=== PATIENT | female | born 1935 ===

== ENCOUNTER 2017-07-06 23:18 | Observation (INO) | payer MEDICARE ==
[2017-07-06 23:19] VITALS: BMI 29.0
[2017-07-06] MEDS ORDERED: Iohexol 300 100 ML IJ ONE (23:59)
--- NOTE | 2017-07-07 00:03 | ED PDOC ---
Arrival/HPI - General Chief Complaint: Weakness/Neurological Deficit Time Seen by Provider: 07/06/17 23:47 Historian: Patient, Family (daughter) - History of Present Illness Narrative History of Present Illness (Text): 07/06/17 23:47 81 y/o F c no PMHx p/w numbness of the left forearm and hand that began an hour prior to arrival. Patient reports she was sewing when she began to feel the numbness and called her daughter and grandson. Last time well 1 hour ago. Patient states that the numbness is still present on the left arm. She denies weakness or slurred speech. Patient was recently in the emergency department on 07/01/17 for left leg pain and to rule out DVT which came back negative. Patient denies any fever, facial droop, pain, vision change, or any other complaints. PMD: Dr. Ricks Time/Duration: 1 hour Symptom Onset: Sudden Symptom Course: Unchanged Activities at Onset: Light Context: Home Past Medical History - Provider Review Nursing Documentation Reviewed: Yes - Infectious Disease Hx of Infectious Diseases: None - Cardiac Hx Cardiac Disorders: Yes Hx Hypotension: Yes - Pulmonary Hx Respiratory Disorders: Yes Hx Pneumonia: Yes Other/Comment: flu- 2015 - Neurological Hx Neurological Disorder: Yes Hx Vertigo: Yes - HEENT Hx HEENT Disorder: No - Renal Hx Renal Disorder: No - Endocrine/Metabolic Hx Endocrine Disorders: No - Hematological/Oncological Hx Blood Disorders: No - Integumentary Hx Dermatological Disorder: No - Musculoskeletal/Rheumatological Hx Musculoskeletal Disorders: No - Gastrointestinal Hx Gastrointestinal Disorders: No - Genitourinary/Gynecological Hx Genitourinary Disorders: No - Psychiatric Hx Psychophysiologic Disorder: No Hx Substance Use: No - Past Surgical History Past Surgical History: No Previous - Anesthesia Hx Anesthesia: No - Suicidal Assessment Feels Threatened In Home Enviroment: No Family/Social History - Physician Review Nursing Documentation Reviewed: Yes Family/Social History: No Known Family HX Smoking Status: Never Smoked Hx Alcohol Use: No Hx Substance Use: No Hx Substance Use Treatment: No Allergies/Home Meds Allergies/Adverse Reactions: Allergies Penicillins Allergy (Verified 07/06/17 23:25) RASH Home Medications: Home Meds Medication Instructions Recorded Confirmed Multivit-Minerals/Folic Acid 1 tab PO DAILY 07/01/17 07/06/17 [Adult Multi Gummies] Review of Systems - Physician Review All systems were reviewed & negative as marked: Yes - Review of Systems Constitutional: absent: Fevers Eyes: absent: Vision Changes Neurological: Other (Numbeness on the left forearm and hand). absent: Facial Droop Physical Exam - Physical Exam Narrative Physical Exam (Text): Constitutional: No acute distress. Head: Normocephalic. Atraumatic. Eyes: PERRL. ENT: Moist mucous membranes. Neck: Supple. No midline tenderness. Cardiovascular: Regular rate. Chest: No tenderness. Respiratory: Clear to auscultation bilaterally. GI: Soft. Nontender. Nondistended. Back: No CVA tenderness. Musculoskeletal: No tenderness or swelling of extremities. Skin: No rash. Neurologic: Alert. Left hand and arm numbness compared to the right in a all dermatomes, subjectively decreased sensation to light touch and pin prick. Also in left leg compared to the right. 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 No facial droop. Vital Signs Reviewed: Yes Vital Signs Temp Pulse Resp BP Pulse Ox 07/07/17 02:14 69 18 108/63 96 07/07/17 01:50 71 18 115/61 98 07/07/17 00:55 67 18 125/68 98 07/07/17 00:40 67 18 97/62 L 98 07/07/17 00:25 69 16 106/59 L 96 07/06/17 23:25 98.1 F 75 18 136/72 97 Temperature: Afebrile Blood Pressure: Normal Pulse: Regular Respiratory Rate: Normal Appearance: Positive for: Well-Appearing, Non-Toxic, Comfortable Pain Distress: None Mental Status: Positive for: Alert and Oriented X 3 Medical Decision Making ED Course and Treatment: 07/06/17 23:47 Plan: -- Labs -- CT Angiography Head -- CT Angiography Neck -- CT Head -- EKG -- Chest X-ray -- Tylenol -- Reassess and disposition Progress Notes: 07/06/17 23:47 Activated Code Stroke. EKG shows NSR at [address]/T wave changes. Interpreted by me. EXAM:CT Head Without Intravenous Contrast Dictated and Authenticated by: Nilson Bejarano MD 07/07/2017 12:05 AM IMPRESSION: 1. No acute intracranial hemorrhage or acute territorial type infarct. 2. There are small periventricular foci of hypodensity within the cerebral white matter, likely representing small vessel ischemic disease in a patient this age. 3. Mild atrophy. 4. Paranasal sinus disease is noted above. EXAM:CT Angiography Neck With Intravenous Contrast Dictated and Authenticated by: Nilson Bejarano MD 07/07/2017 12:41 AM IMPRESSION: 1. Mural irregularity and mild stenoses are identified of the distal right internal carotid artery, consistent with stenoses. This may be atherosclerotic, although fibromuscular dysplasia is within the differential. 2. There is mural irregularity also visualized of the distal left internal carotid artery, without hemodynamically significant stenosis. 3. Scattered hypodense thyroid nodules are identified, which are subcentimeter in size. 4. Within the right pulmonary apex, there is a 4 mm nodule. A nonemergent chest CT is recommended. 5. Incidental/non-acute findings are described above. CXR Impression: As read by me, No acute disease. EXAM: CT Angiography Head With Intravenous Contrast Dictated and Authenticated by: Nilson Bejarano MD 07/07/2017 1:18 AM IMPRESSION: 1. 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 2. 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 There is approximately 50% stenosis on the left side and less than 50% stenosis on the right side. 3. There is persistence of a origin of the right posterior cerebral artery , with a hypoplastic right P1 segment. 4. Anterior to the left posterior cerebral artery, an enhancing vessel is identified. This is suggestive of a collateral vessel. An AV fistula cannot be excluded. This can be further evaluated with conventional angiography. 5. Incidental/non-acute findings are described above. 07/07/17 01:[address] Rios who recommends against tPA at this time in this patient with low NIH, low severity symptoms. Will consult. 07/07/17 01:[address] Ricks, recommends ICU consult. 07/07/17 01:46 Discussed case with Hydrometer Calibrator Dr. Ware, will come down and evaluate patient. 07/07/17 02:[address] Ware seen and evaluated patient and recommends patient admission to Telemetry. Called Dr. Ricks who is aware and agrees with the plan. Will place order for neuro checks Q2H. Patient will be admitted to Telemetry. Dr. Ricks requests recall to Dr. Rios to inform of what has transpired and to obtain orders. Dr. Rios paged, pending his call back. - Lab Interpretations Lab Results: 07/07/17 00:20 07/07/17 00:20 Lab Results 07/07/17 00:34: POC Glucose (mg/dL) 76 07/07/17 00:20: Blood Type O NEGATIVE, Antibody Screen Negative, BBK History Checked No verified bt 07/07/17 00:20: Sodium 137, Potassium 3.9, Chloride 105, Carbon Dioxide 28, Anion Gap 8 L, BUN 37 H, Creatinine 0.7, Est GFR ( Amer) > 60, Est GFR ( Non-Af Amer) > 60, Random Glucose 89, Calcium 10.5, Total Bilirubin 0.3, AST 16 , ALT 39, Alkaline Phosphatase 75, Troponin I < 0.01, Total Protein 5.8, Albumin 3.4, Globulin 2.4, Albumin/Globulin Ratio 1.4, Triglycerides 104, Cholesterol 207 H, LDL Cholesterol Direct 132 H, HDL Cholesterol 45 07/07/17 00:20: PT 11.7, INR 1.07, APTT 32.4 07/07/17 00:20: WBC 7.4 D, RBC 3.91, Hgb 11.6 L, Hct 34.9 L, MCV 89.3, MCH 29.7 , MCHC 33.2, RDW 13.8, Plt Count 232, MPV 10.3, Gran % 60.0, Lymph % (Auto) 26.4 , [place] % (Auto) 10.3 H, Eos % (Auto) 2.9, Baso % (Auto) 0.4, Gran # 4.42, Lymph # 1.9, [place] # 0.8 H, Eos # 0.2, Baso # 0.03 I have reviewed the lab results: Yes - RAD Interpretation Radiology Orders: 07/06/17 23:50 HEAD W/O (CODE STROKE) [CT] Stat 07/06/17 23:55 ANGIOGRAPHY HEAD [CT] Stat 07/06/17 23:57 ANGIOGRAPHY NECK [CT] Stat 07/07/17 00:18 CHEST PORTABLE [RAD] Stat - EKG Interpretation Interpreted by ED Physician: Yes Type: 12 lead EKG - Medication Orders Current Medication Orders: Aspirin (Aspirin Chewable) 81 mg PO DAILY GANESH Discontinued Medications Aspirin (Aspirin) 325 mg PO STAT STA Stop: 07/07/17 02:21 Last Admin: 07/07/17 03:36 Dose: 325 mg Atorvastatin Calcium (Lipitor) 20 mg PO STAT STA Stop: 07/07/17 03:25 Last Admin: 07/07/17 03:36 Dose: 20 mg rTPA Inclusion/Exclusion - Refusal of Treatment Patient Refused Treatment: No - Inclusion Criteria for Altepase Patient is 18 years or Older: Yes The Clinical Diagnosis of Ischemic Stroke That is Causing a Potentially Disabling Neurological Deficit: Yes Time of Onset is Well Established to be Less Than 270 Minute Before Treatment Would Begin: Yes Risk/Benefit Discussed With Patient/Family Member Present: Yes - Exclusion Criteria for Altepase Uncontrolled Hypertension at Time of Treatment (Systolic BP above 185 or Diastolic BP above 110 mmHg): No History of: Vascular Malformation (questionable on CT) - Warning to TPA With Conditions Following Conditions Weighed Against Anticipated Benefit: Yes Condition: Stroke Serevity Too Mild, Age Greater Than 75 years - Scribe Statement The provider has reviewed the documentation as recorded by the Travis Carballo Provider Scribe Attestation: All medical record entries made by the Travis were at my direction and personally dictated by me. I have reviewed the chart and agree that the record accurately reflects my personal performance of the history, physical exam, medical decision making, and the department course for this patient. I have also personally directed, reviewed, and agree with the discharge instructions and disposition. Disposition/Present on Arrival - Present on Arrival Any Indicators Present on Arrival: No History of DVT/PE: No History of Uncontrolled Diabetes: No Urinary Catheter: No History of Decub. Ulcer: No History Surgical Site Infection Following: None - Disposition Have Diagnosis and Disposition been Completed?: Yes Diagnosis: Hemiparesthesia, Left arm weakness Disposition: HOSPITALIZED Disposition Time: 02:15 Patient Plan: Admission, Telemetry Patient Problems: Current Active Problems Problem Status Onset Hemiparesthesia Acute Left arm weakness Acute Condition: GUARDED NIHSS Stroke Scale - Date/Time Evaluation Performed Date Performed: 07/06/17 Time Performed: 23:47 - How Severe is the Stoke Level of Consciousness: 0=Alert Visual: 0=No visual loss Facial: 0=Normal Motor Arm - Left: 0=No drift Motor Arm - Right: 0=No drift Motor Leg - Left: 0=No drift Motor Leg - Right: 0=No drift Limb Ataxia: 0=Absent Sensory: 1=Mild to moderate loss Best Language: 0=No aphasia Dysarthia: 0=Normal articulation Extinction & Inattention (Neglect): 0=Normal, no object Severity Of Stroke: 1-4= Minor Stroke
--- NOTE | 2017-07-07 00:05 | CT ---
EXAM: CT Head Without Intravenous Contrast EXAM DATE/TIME: 07/06/2017 11:50 PM CLINICAL HISTORY: The patient age is 81 years old and is female; Signs and symptoms; Weakness, extremity; Left; Additional info: L sided weakness, numbness Facility exam id and description: Ct headstroke head w/o (code stroke) TECHNIQUE: Axial computed tomography images of the head/brain without intravenous contrast. All CT scans at this facility use one or more dose reduction techniques, viz.: automated exposure control; ma/kV adjustment per patient size (including targeted exams where dose is matched to indication; i.e. head); or iterative reconstruction technique. COMPARISON: CT - HEAD W/O CONTRAST 2017-02-02 11:27 FINDINGS: Brain: There are small periventricular foci of hypodensity within the cerebral white matter, likely representing small vessel ischemic disease in a patient this age. The acuity of the white matter disease is indeterminate. The white-barreto differentiation is preserved demonstrating no acute territorial type infarct. There is mild prominence of the ventricles and sulci, compatible with atrophy. No acute intracranial hemorrhage is seen. Midline shift: There is no midline shift. Ventricles: See above. Bones/joints: The calvarium demonstrates no evidence for a depressed fracture. Soft tissues: No acute abnormality. Vasculature: There is atherosclerotic calcification of the cavernous internal carotid arteries and distal vertebral arteries. Sinuses: A mucus retention cyst or polyp with mucosal thickening are visualized in the left maxillary sinus. Mastoid air cells: No mastoid effusion. IMPRESSION: 1. No acute intracranial hemorrhage or acute territorial type infarct. 2. There are small periventricular foci of hypodensity within the cerebral white matter, likely representing small vessel ischemic disease in a patient this age. 3. Mild atrophy. 4. Paranasal sinus disease is noted above.
--- NOTE | 2017-07-07 00:41 | CT ---
EXAM: CT Angiography Neck With Intravenous Contrast EXAM DATE/TIME: 07/06/2017 11:57 PM CLINICAL HISTORY: The patient age is 81 years old and is female; Signs and symptoms; Weakness; Additional info: Code stroke Facility exam id and description: Ct angionk angiography neck TECHNIQUE: Axial computed tomographic angiography images of the neck with intravenous contrast using CT angiography protocol. All CT scans at this facility use one or more dose reduction techniques, viz.: automated exposure control; ma/kV adjustment per patient size (including targeted exams where dose is matched to indication; i.e. head); or iterative reconstruction technique. MIP reconstructed images were created and reviewed. Coronal and sagittal reformatted images were created and reviewed. CTA neck images were included with the CTA head study from the same day. CONTRAST: 100 mL of omni 300 administered intravenously. COMPARISON: No relevant prior studies available. FINDINGS: VASCULATURE: Right common carotid artery: There is increased tortuosity of the right common carotid artery, without significant stenosis or occlusion. Right internal carotid artery: Mural irregularity and mild stenoses are identified of the distal right internal carotid artery, consistent with stenoses. This may be atherosclerotic, although fibromuscular dysplasia is within the differential. There is no significant stenosis or occlusion of the proximal right internal carotid artery. Right external carotid artery: No occlusion. Right vertebral artery: No occlusion or significant stenosis. Left common carotid artery: No significant stenosis. No dissection or occlusion. Left internal carotid artery: There is mural irregularity of the distal left internal carotid artery, without hemodynamically significant stenosis. No occlusion. Left external carotid artery: No occlusion. Left vertebral artery: No occlusion or significant stenosis. Other vasculature: There is atherosclerosis of the aortic arch. NECK: Bones/joints: There is straightening of the lordotic curvature of the cervical spine. Spondylosis is visualized on multiple cervical levels. Lymph nodes: Scattered small nonspecific cervical lymph nodes are identified. Thyroid: Scattered hypodense thyroid nodules are identified, which are subcentimeter in size. Lung apices: Within the right pulmonary apex, there is a 4 mm nodule. Patchy nonspecific groundglass density is identified within the lungs bilaterally. CAROTID STENOSIS REFERENCE USING NASCET CRITERIA: % ICA stenosis = (1 - narrowest ICA diameter/diameter of distal cervical ICA) x 100. Mild - <50% stenosis. Moderate - 50-69% stenosis. Severe - 70-94% stenosis. Near occlusion - 95-99% stenosis. Occluded - 100% stenosis. IMPRESSION: 1. Mural irregularity and mild stenoses are identified of the distal right internal carotid artery, consistent with stenoses. This may be atherosclerotic, although fibromuscular dysplasia is within the differential. 2. There is mural irregularity also visualized of the distal left internal carotid artery, without hemodynamically significant stenosis. 3. Scattered hypodense thyroid nodules are identified, which are subcentimeter in size. 4. Within the right pulmonary apex, there is a 4 mm nodule. A nonemergent chest CT is recommended. 5. Incidental/non-acute findings are described above.
[2017-07-07 00:45] LABS: BASO # 0.03 K/mm3 (0.0-2.0); BASO % 0.4 % (0.0-3.0); EOS # 0.2 (0.0-0.7); EOS % 2.9 % (1.5-5.0); GRAN # 4.42 (1.4-6.5); HEMATOCRIT 34.9 % (36.0-48.0); LYMPH # 1.9 (1.2-3.4); LYMPH % 26.4 % (22.0-35.0); MEAN CELL VOLUME 89.3 fl (80.0-105.0); MEAN CORPUSCULAR HEMOGLOBIN 29.7 pg (25.0-35.0); MEAN CORPUSCULAR HGB CONC 33.2 g/dl (31.0-37.0); MEAN PLATELET VOLUME 10.3 fl (7.0-11.0); MONO # 0.8 (0.1-0.6); MONO % 10.3 % (1.0-6.0); RED CELL DISTRIBUTION WIDTH 13.8 % (11.5-14.5); WHITE BLOOD COUNT 7.4 10^3/ul (4.5-11.0)
[2017-07-07 00:50] LABS: INR 1.07 (0.93-1.08); PARTIAL THROMBOPLASTIN TIME 32.4 Seconds (25.1-36.5)
[2017-07-07 00:57] LABS: ALB/GLOB RATIO 1.4 (1.1-1.8); ALKALINE PHOSPHATASE 75 U/L (38-126); ALT/SGPT 39 U/L (7-56); AST/SGOT 16 U/L (14-36); BILIRUBIN,TOTAL 0.3 mg/dL (0.2-1.3); BLOOD UREA NITROGEN 37 mg/dL (7-21); CALCIUM 10.5 mg/dL (8.4-10.5); CARBON DIOXIDE 28 mmol/L (21-33); CHLORIDE 105 mmol/L (95-110); CHOLESTEROL 207 mg/dL (130-200); GFR AFRICAN-AMERICAN > 60; GLUCOSE,RANDOM 89 mg/dL (70-110); POTASSIUM 3.9 mmol/L (3.6-5.0); SODIUM 137 mmol/L (132-148); TOTAL PROTEIN 5.8 g/dL (5.8-8.3)
[2017-07-07 01:08] LABS: TROPONIN I < 0.01 ng/mL
--- NOTE | 2017-07-07 01:18 | CT ---
EXAM: CT Angiography Head With Intravenous Contrast EXAM DATE/TIME: 07/06/2017 11:55 PM CLINICAL HISTORY: The patient age is 81 years old and is female; Signs and symptoms; Weakness; Additional info: Code stroke Facility exam id and description: Ct angiohd angiography head TECHNIQUE: Axial computed tomographic angiography images of the head with intravenous contrast using CT angiography protocol. All CT scans at this facility use one or more dose reduction techniques, viz.: automated exposure control; ma/kV adjustment per patient size (including targeted exams where dose is matched to indication; i.e. head); or iterative reconstruction technique. MIP reconstructed images were created and reviewed. Coronal and sagittal reformatted images were created and reviewed. CONTRAST: 100 mL of OMNI 300 administered intravenously. 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 There is approximately 50% stenosis on the left side and less than 50% stenosis on the right side. Right anterior cerebral artery: No occlusion or significant stenosis. No aneurysm. Right middle cerebral artery: No occlusion or significant stenosis. No aneurysm. Right posterior cerebral artery: There is persistence of a origin of the right posterior cerebral artery, with a hypoplastic right P1 segment. No occlusion. No aneurysm. Right vertebral artery: No occlusion or significant stenosis. Left internal carotid artery: See above. Left anterior cerebral artery: No occlusion or significant stenosis. No aneurysm. Left middle cerebral artery: No occlusion or significant stenosis. No aneurysm. Left posterior cerebral artery: No occlusion or significant stenosis. Anterior to the left posterior cerebral artery, an enhancing vessel is identified. This is suggestive of a collateral vessel. An AV fistula cannot be excluded. Left vertebral artery: No occlusion or significant stenosis. Basilar artery: No significant stenosis. No occlusion. No aneurysm. Other findings: There is increased tortuosity of the vertebrobasilar system. IMPRESSION: 1. 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 2. 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 There is approximately 50% stenosis on the left side and less than 50% stenosis on the right side. 3. There is persistence of a origin of the right posterior cerebral artery, with a hypoplastic right P1 segment. 4. Anterior to the left posterior cerebral artery, an enhancing vessel is identified. This is suggestive of a collateral vessel. An AV fistula cannot be excluded. This can be further evaluated with conventional angiography. 5. Incidental/non-acute findings are described above.
--- NOTE | 2017-07-07 02:19 | CP.PCM.CON ---
<Kayley Garcia - Last Filed: 07/07/17 03:04> History of Present Illness - History of Present Illness History of Present Illness: 81yo female denies PMHx on no medications presents to ED with numbness and tingling of left hand and forearm that started at 10:30pm [an hour prior to arriving in ED]. Patient was sewing at the time of event and noticed her hands become numb which started to move upwards. Patient's family at bedside denied noticing any facial droop, changes in vision, changes in speech, or changes in mentation. Patient was recently in the emergency department on 07/01/17 for left leg pain and to rule out DVT which came back negative. She did complain of some dizziness and when family took her BP at home it was 131/83 which is elevated for the patient who has SBP 80s-90s at baseline. On ROS patient denied fever, chills, headache, chest pain, palpitations, SOB, cough, abd pain, nausea , vomiting, bowel/bladder complaints, pain/swelling in her legs bilaterally. She usually ambulates around the house and carries out ADLs. Patient recently traveled to [facility] 2 weeks ago and patient denied any sick contacts. Patient last saw PMD Dr. Ricks in ER on 07/01 PMD: Rambo PMH: denies PSH: denies Meds: multivitamin Allergies: PCN Social Hx: denies tobacco, EtOH, drug use. Lives at home with nephew. 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 Family Hx: father had stomach ca. Review of Systems - Constitutional Constitutional: As Per HPI. absent: Chills, Fever - EENT Eyes: As Per HPI. absent: Change in Vision Ears: As Per HPI, Dizziness Nose/Mouth/Throat: As Per HPI. absent: Sore Throat - Cardiovascular Cardiovascular: As Per HPI. absent: Chest Pain, Dyspnea, Edema - Respiratory Respiratory: As Per HPI. absent: Cough, Dyspnea, Chest Congestion - Gastrointestinal Gastrointestinal: As Per HPI. absent: Abdominal Pain, Constipation, Diarrhea, Nausea, Vomiting - Genitourinary Genitourinary: As Per HPI. absent: Dysuria, Pyuria - Musculoskeletal Musculoskeletal: As Per HPI, Numbness (L hand and forearm), Tingling (L hand and forearm) - Integumentary Integumentary: As Per HPI. absent: Dry Skin - Neurological Neurological: As Per HPI, Dizziness, Numbness (L forearm), Focal Weakness (L forearm), Tingling (L forearm), Weakness (L forearm). absent: Abnormal Gait, Abnormal Hearing, Abnormal Speech, Confusion, Frequent Falls, Headaches, Loss of Vision, Syncope - Psychiatric Psychiatric: As Per HPI. absent: Anxiety, Depression - Endocrine Endocrine: As Per HPI. absent: Polydipsia, Polyphagia, Polyuria - Hematologic/Lymphatic Hematologic: As Per HPI. absent: Easy Bleeding, Easy Bruising, Lymphadenopathy Past Patient History - Infectious Disease Hx of Infectious Diseases: None - Past Social History Smoking Status: Never Smoked - CARDIAC Hx Cardiac Disorders: Yes Hx Hypotension: Yes - PULMONARY Hx Respiratory Disorders: Yes Hx Pneumonia: Yes Other/Comment: flu- 2015 - NEUROLOGICAL Hx Neurological Disorder: Yes Hx Vertigo: Yes - HEENT Hx HEENT Problems: No - RENAL Hx Chronic Kidney Disease: No - ENDOCRINE/METABOLIC Hx Endocrine Disorders: No - HEMATOLOGICAL/ONCOLOGICAL Hx Blood Disorders: No - INTEGUMENTARY Hx Dermatological Problems: No - MUSCULOSKELETAL/RHEUMATOLOGICAL Hx Musculoskeletal Disorders: No - GASTROINTESTINAL Hx Gastrointestinal Disorders: No - GENITOURINARY/GYNECOLOGICAL Hx Genitourinary Disorders: No - PSYCHIATRIC Hx Psychophysiologic Disorder: No Hx Substance Use: No - SURGICAL HISTORY Hx Surgeries: No - ANESTHESIA Hx Anesthesia: No Meds Allergies/Adverse Reactions: Allergies Allergy/AdvReac Type Severity Reaction Status Date / Time Penicillins Allergy RASH Verified 07/06/17 23:25 Physical Exam - Constitutional Appears: Well, Non-toxic, No Acute Distress - Head Exam Head Exam: ATRAUMATIC, NORMAL INSPECTION, NORMOCEPHALIC - Eye Exam Eye Exam: EOMI, Normal appearance, PERRL. absent: Conjunctival injection, Scleral icterus Pupil Exam: NORMAL ACCOMODATION - ENT Exam ENT Exam: Mucous Membranes Moist - Neck Exam Neck exam: Positive for: Full Rom, Normal Inspection. Negative for: Lymphadenopathy, Tenderness - Respiratory Exam Respiratory Exam: Clear to Auscultation Bilateral, NORMAL BREATHING PATTERN. absent: Accessory Muscle Use, Rales, Rhonchi, Wheezes, Respiratory Distress - Cardiovascular Exam Cardiovascular Exam: REGULAR RHYTHM, RRR, +S1, +S2. absent: Systolic Murmur - GI/Abdominal Exam GI & Abdominal Exam: Normal Bowel Sounds, Soft. absent: Firm, Guarding, Rigid, Tenderness - Extremities Exam Extremities exam: Positive for: normal capillary refill, normal inspection, pedal pulses present. Negative for: pedal edema, tenderness - Back Exam Back exam: NORMAL INSPECTION. absent: rash noted, tenderness - Neurological Exam Neurological exam: Alert, CN II-XII Intact, Oriented x3, Reflexes Normal - Psychiatric Exam Psychiatric exam: Normal Affect, Normal Mood - Skin Skin Exam: Dry, Intact, Normal Color, Warm Results - Vital Signs Recent Vital Signs: Last Vital Signs Temp 98.1 F 07/06/17 23:25 Pulse 69 07/07/17 02:14 Resp 18 07/07/17 02:14 BP 108/63 07/07/17 02:14 Pulse Ox 96 07/07/17 02:14 - Labs Result Diagrams: 07/07/17 00:20 07/07/17 00:20 Labs: Laboratory Results - last 24 hr 07/07/17 07/07/17 07/07/17 00:20 00:20 00:20 WBC 7.4 D RBC 3.91 Hgb 11.6 L Hct 34.9 L MCV 89.3 MCH 29.7 MCHC 33.2 RDW 13.8 Plt Count 232 MPV 10.3 Gran % 60.0 Lymph % (Auto) 26.4 Spink % (Auto) 10.3 H Eos % (Auto) 2.9 Baso % (Auto) 0.4 Gran # 4.42 Lymph # 1.9 Spink # 0.8 H Eos # 0.2 Baso # 0.03 PT 11.7 INR 1.07 APTT 32.4 Sodium 137 Potassium 3.9 Chloride 105 Carbon Dioxide 28 Anion Gap 8 L BUN 37 H Creatinine 0.7 Est GFR ( Amer) > 60 Est GFR (Non-Af Amer) > 60 POC Glucose (mg/dL) Random Glucose 89 Calcium 10.5 Total Bilirubin 0.3 AST 16 ALT 39 Alkaline Phosphatase 75 Troponin I < 0.01 Total Protein 5.8 Albumin 3.4 Globulin 2.4 Albumin/Globulin Ratio 1.4 Triglycerides 104 Cholesterol 207 H LDL Cholesterol Direct 132 H HDL Cholesterol 45 Blood Type Antibody Screen BBK History Checked 07/07/17 07/07/17 00:20 00:34 WBC RBC Hgb Hct MCV MCH MCHC RDW Plt Count MPV Gran % Lymph % (Auto) Spink % (Auto) Eos % (Auto) Baso % (Auto) Gran # Lymph # Spink # Eos # Baso # PT INR APTT Sodium Potassium Chloride Carbon Dioxide Anion Gap BUN Creatinine Est GFR ( Amer) Est GFR (Non-Af Amer) POC Glucose (mg/dL) 76 Random Glucose Calcium Total Bilirubin AST ALT Alkaline Phosphatase Troponin I Total Protein Albumin Globulin Albumin/Globulin Ratio Triglycerides Cholesterol LDL Cholesterol Direct HDL Cholesterol Blood Type O NEGATIVE Antibody Screen Negative BBK History Checked No verified bt Assessment & Plan - Assessment and Plan (Free Text) Assessment: 81yo female denies PMHx on no medications presents to ED with numbness and tingling of left hand and forearm that started at 10:30pm [an hour prior to arriving in ED] Plan: TIA vs CVA - CT Head w/o contrast: no acute intracranial hemorrhage or acute territorial type infarct. Small periventricular foci of hypodensity within the cerebral white matter likely representing small vessel ischemic disease in a patient this age. Mild atrophy. 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 There is atherosclerosis of the cavernous ICA b/l. Approximately 50% stenosis of the left side and less than 50% stenosis of the right side. Persistence of a origin of the R posterior cerebral artery with a hypoplastic R P1 segment. Anterior to the L posterior cerebral artery, an enhancing vessel is identified. This is suggestive of a collateral vessel. An AV fistula cannot be exclued. This can be further evaluated with conventional angiography. - CT Angio neck: mural irregularity and mild stenoses are identified of the distal R ICA consistent with stenoses. This may be atherosclerotic although fibromuscular dysplasia is within the differential. There is mural irregularity also visualized of the distal L ICA without hemodynamically significant stenosis. Scattered hypodense thyroid nodules are identified which are subcentimeter in size. Within the R pulmonary apex, there is a 4mm nodule. A nonemergent chest CT is recommended. - Lipid panel TG 104 Cholesterol 207 LDL 132 HDL 45 - f/u HgbA1c - recommend ASA 81mg po qdaily - recommend Lipitor 20mg po qhs - Neuro checks q2-3h - Neuro consult: Dr. Librado Rios - Heart healthy diet Patient is not a candidate for ICU admission and will benefit from TELE Please reconsult as needed Discussed with Dr. Jeanie Garcia PGY2 <Jeanie CASTELLANOS,Fuentes - Last Filed: 07/12/17 08:17> Results - Vital Signs Recent Vital Signs: Last Vital Signs Temp 97.4 F L 07/08/17 12:00 Pulse 70 07/08/17 14:00 Resp 20 07/08/17 12:00 BP 110/62 07/08/17 12:00 Pulse Ox 97 07/07/17 05:47 - Labs Result Diagrams: 07/07/17 07:00 07/07/17 07:00 Attending/Attestation - Attestation I have personally seen and examined this patient.: Yes I have fully participated in the care of the patient.: Yes I have reviewed all pertinent clinical information: Yes Notes (Text): -I agree with the above ICU consult note completed by the resident physician. Patient doesn't require ICU level of care. Please feel free to re-consult if patient's condition deteriorates. Thanks.
[2017-07-07 05:48] VITALS: O2SAT 97
[2017-07-07 07:25] LABS: HEMATOCRIT 36.9 % (36.0-48.0); MEAN CELL VOLUME 88.5 fl (80.0-105.0); MEAN CORPUSCULAR HEMOGLOBIN 29.3 pg (25.0-35.0); MEAN CORPUSCULAR HGB CONC 33.1 g/dl (31.0-37.0); MEAN PLATELET VOLUME 10.4 fl (7.0-11.0); RED CELL DISTRIBUTION WIDTH 13.9 % (11.5-14.5); WHITE BLOOD COUNT 5.9 10^3/ul (4.5-11.0)
[2017-07-07 07:40] LABS: ALB/GLOB RATIO 1.3 (1.1-1.8); ALKALINE PHOSPHATASE 69 U/L (38-126); ALT/SGPT 29 U/L (7-56); AST/SGOT 16 U/L (14-36); BILIRUBIN,TOTAL 0.5 mg/dL (0.2-1.3); BLOOD UREA NITROGEN 33 mg/dL (7-21); CALCIUM 10.7 mg/dL (8.4-10.5); CARBON DIOXIDE 27 mmol/L (21-33); CHLORIDE 108 mmol/L (98-107); GFR AFRICAN-AMERICAN > 60; GLUCOSE,RANDOM 88 mg/dL (70-110); POTASSIUM 3.9 mmol/L (3.6-5.0); SODIUM 139 mmol/L (132-148); TOTAL PROTEIN 6.1 g/dL (5.8-8.3)
--- NOTE | 2017-07-07 10:25 | RAD ---
HISTORY: code stroke, hemiparesthesia COMPARISON: Comparison is made to 10/21/2014 FINDINGS: LUNGS: No active pulmonary disease. PLEURA: No significant pleural effusion identified, no pneumothorax apparent. CARDIOVASCULAR: Normal. OSSEOUS STRUCTURES: No significant abnormalities. VISUALIZED UPPER ABDOMEN: Normal. OTHER FINDINGS: None. IMPRESSION: No active disease.
[2017-07-07] MEDS ORDERED: MethylPREDNISolone Depo 40 mg/ml Inj IM ONE (12:49)
[2017-07-07] MEDS ORDERED: Bupivacaine 0.5% Inj(30mL) IJ ONE (12:49)
--- NOTE | 2017-07-07 14:07 | CON ---
DATE: 07/07/2017 NEUROLOGY CONSULTATION CHIEF COMPLAINT: Left hand and forearm tingling and numbness. HISTORY OF PRESENT ILLNESS: This is an 81-year-old woman with no significant past medical history who came into the hospital for tingling and numbness of the left hand and forearm and difficulty to grasp with her left hand and has some arthritic pain of her hand. The patient says her hands and thumb went numb. She was sewing and started developing these symptoms. She denies any changes in sense of vision, taste, or smell. No changes in speech. No facial droop or no focal weakness in terms of pronator drift. CAT scan of the head showed no acute intracranial abnormality. 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 Overall, CT angiogram of the neck showed some irregular thickening consistent with fibromuscular dysplasia. Otherwise, her LDL is 132, HDL is 45, cholesterol of 207. She is currently on aspirin 81 mg, Lipitor 20 mg for stroke prevention. No focal worsening symptoms overnight. CAT scan of the head showed no acute intracranial abnormalities. PAST MEDICAL HISTORY: Not significant. ALLERGIES: PENICILLIN. FAMILY HISTORY: Noncontributory. SOCIAL HISTORY: No illicit drug abuse, smoking, or EtOH abuse. REVIEW OF SYSTEMS: A 14-point review of systems is negative except as per the HPI. PHYSICAL EXAMINATION: GENERAL: The patient is sitting up in bed, in no acute distress. VITAL SIGNS: Temperature 97.8, pulse rate 66, blood pressure 122/70, respiratory rate 18, and oxygen saturation 97% on room air. HEENT: Head is atraumatic and normocephalic. PERRLA. Extraocular muscles intact. NECK: Supple. No JVD. No adenopathy noted. LUNGS: Clear to auscultation. No adventitious sounds. HEART: S1 and S2, normal rate and rhythm. No murmurs, rubs, or gallops. ABDOMEN: Soft, nontender, nondistended. Bowel sounds are present. EXTREMITIES: No clubbing, no cyanosis. Peripheral pulses 2+ felt bilaterally. NEUROLOGIC: The patient is alert, oriented to person, place, month, and year. Speech is fluent without any errors. Cranial nerves II through XII intact. Motor exam, moves all extremities equally. No pronator drift seen. Has mild decreased handgrip on the left compared to the right. DTRs are 2+ throughout and 1 at the knees and ankles. Coordination, [id number] intact. Gait is deferred for now. LABORATORY DATA: Sodium is 139, potassium 3.9, chloride 108, carbon dioxide 27, BUN of 33, creatinine 0.6, random glucose of . Cholesterol is 207 and LDL is 132. ASSESSMENT AND PLAN: This is an 81-year-old woman with no significant past medical history who presented with numbness and tingling of the left hand and forearm, otherwise no focal weakness of the extremities. At this time, feels like her symptoms are secondary to her left upper extremity compression neuropathy versus questionable infarct though, seems unlikely it is more peripheral in nature, given that she does lot of hand work and sewing. There is no radicular symptoms unlikely cervical given that she has no neck pain radiating down the arm. At this time, recommend: 1. MRI of the brain to rule out any acute infarctions. 2. She will require a wrist splint and physical therapy and occupational therapy. 3. We will recommend outpatient EMG to assess for any peripheral nerve injury as an outpatient. At this time, continue with aspirin 81 mg and Lipitor 20 mg p.o. daily for stroke prevention. Taras Rios MD
--- NOTE | 2017-07-07 14:41 | MRI ---
PROCEDURE: MRI BRAIN WITHOUT CONTRAST HISTORY: cva COMPARISON: Comparison is made to the previous brain MRI dated 08/08/2015 TECHNIQUE: Multiplanar, multisequence MR images of the brain were obtained without intravenous contrast enhancement. FINDINGS: HEMORRHAGE: None DWI: No evidence of an acute or early subacute infarction. BRAIN PARENCHYMA: No mass effect or edema. No atrophy or chronic microvascular ischemic changes. VENTRICLES: Unremarkable. No hydrocephalus. CRANIUM: Unremarkable. ORBITS: Grossly unremarkable. PARANASAL SINUSES/MASTOIDS: Mild mucosal thickening seen at the left maxillary sinus. VASCULAR SYSTEM: Skull base flow voids intact. OTHER FINDINGS: None. IMPRESSION: No diffusion restriction noted to suggest acute infarction. No evidence of acute pathology mass lesion mass effect or midline shift.
--- NOTE | 2017-07-07 15:08 | RAD ---
PROCEDURE: Bilateral Knee Radiographs. HISTORY: need standing xrays both knees COMPARISON: None. FINDINGS: BONES: Right Knee: Normal. No fracture. Left Knee: Normal. No fracture. JOINTS: Right Knee: Mild osteoarthritic changes Left knee: Mild osteoarthritic changes . SOFT TISSUES: Right Knee: Normal. Left Knee: Normal. JOINT EFFUSION: Right Knee: None. Left Knee: None. OTHER FINDINGS: None. IMPRESSION: Normal radiographs of the knees. No evidence of acute fracture or dislocation. Mild osteoarthritic changes.
--- NOTE | 2017-07-07 16:58 | HP ---
HISTORY OF PRESENT ILLNESS: An 81-year-old female who was brought to [facility] yesterday by family. They state that the patient was sewing and noticed numbness in the left arm and left hand. ALLERGIES: THE PATIENT HAS AN ALLERGY TO PENICILLIN. MEDICATIONS: She takes multivitamin at home. PAST MEDICAL HISTORY: She has a past medical history of arthritis of the left knee, cervical arthritis, elevated calcium with elevated parathyroid hormone which the family has not chosen to pursue. Recent surgery on her left thumb, she injured while on vacation in [place]. SOCIAL HISTORY: She is a nonsmoker, nondrinker, and nondrug user. REVIEW OF SYSTEMS: Ten systems were reviewed, pertinent findings that the patient states there is a mild discomfort over the left knee, and she says that there is some mild numbness of the left hand forearm area. She denies chest pain, shortness of breath, fever, chills, or cough. PHYSICAL EXAMINATION: VITAL SIGNS: Show a temperature of 97.6, pulse is 65, blood pressure is 135/77, respiration is 20, oxygen saturation is 97% on room air. GENERAL: She is alert and oriented x3. NECK: Supple. HEART: S1 and S2 rhythm. ABDOMEN: Soft with positive bowel sounds. EXTREMITIES: There is some mild tenderness over the left knee. There is no evidence of edema. DIAGNOSTIC DATA: A CAT scan of the head was reported showing no acute intracranial hemorrhage or acute territorial type infarct. There is small periventricular foci of hypodensity within the cerebral white matter, mild atrophy, and some paranasal sinus disease. 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 There is persistence of origin of the right posterior cerebral artery with a hypoplastic right P1 segment. Anterior to left posterior cerebral artery, there is an enhancing vessel. LABORATORY DATA: Shows a WBC of 7.4, RBC 3.9, hemoglobin 11.6, hematocrit 34.9, platelet count 332. Her PT is 11.7 with an INR of 1.07, PTT of 32.4. Chemistry showed sodium 137, potassium 3.9, chloride 105, the BUN is 37, creatinine is 0.7. LFTs were normal. Troponin is less than 0.01. Her cholesterol is 207. The LDL is 132. The HDL is 45. The triglycerides are 104. Chest x-ray report is pending. Currently, the patient is on Ecotrin 81 mg daily. She received 325 mg in the emergency room with Lipitor 20 mg. A consult has been requested with Neurology, who was consulted in the emergency room with emergency room physicians. A consult will be placed also with orthopedist regarding the left knee as she has not been able to get to the orthopedist yet. The clinical findings have been discussed with the patient and the family and followup the patient's blood work and await neurological recommendations as well as Orthopedic recommendations. Zenaida Ricks MD
--- NOTE | 2017-07-07 23:58 | CP.PCM.PN ---
Subjective - Date & Time of Evaluation Date of Evaluation: 07/07/17 Time of Evaluation: 23:58 - Subjective Subjective: S:Nurse calls to get an order for pain medication for left knee pain. Tylenol 650 mg PO was ordered. When I went to see patient she was sleeping. Medical record was reviewed. O: Last Vital Signs 3 Temp 98 F 07/07/17 17:41 Pulse 62 07/08/17 02:00 Resp 18 07/07/17 17:41 BP 104/61 07/07/17 17:41 Pulse Ox 97 07/07/17 05:47 Asleep. LUNGs:Normal breathing pattern. A:Left knee pain. P:Tylenol 650 mg PO x 1. Objective - Vital Signs/Intake and Output Vital Signs (last 24 hours): Temp Pulse Resp BP Pulse Ox 98 F 78 18 104/61 97 07/07/17 17:41 07/07/17 19:15 07/07/17 17:41 07/07/17 17:41 07/07/17 05:47 Intake and Output: 07/07/17 07/08/17 18:59 06:59 Intake Total 540 Balance 540 - Medications Medications: Current Medications Aspirin (Aspirin Chewable) 81 mg PO DAILY GANESH Last Admin: 07/07/17 10:07 Dose: 81 mg - Labs Labs: 07/07/17 07:00 07/07/17 07:00 PT 11.7 SECONDS (9.4-12.5) 07/07/17 00:20 INR 1.07 (0.93-1.08) 07/07/17 00:20 APTT 32.4 Seconds (25.1-36.5) 07/07/17 00:20
--- NOTE | 2017-07-08 09:20 | CON ---
DATE: 07/07/2017 LOCATION: Room 275, bed 2. HISTORY OF PRESENT ILLNESS: I was asked to see the patient for left knee pain for about 2 weeks duration. She just had come back from [place] with a lot of walking just before the pain started. X-rays were done in the ER about the 02/03, when she came to the ER for some pain and the report is within normal limits, but there is some evidence of osteoarthritis to the medial joint line and lateral patellofemoral asymmetry because of decreased joint space in the lateral patella facet against the femoral condyle, and she does have exquisite tenderness to the medial joint line with some localized swelling and puffiness from boggy synovium. 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 I injected the knee with Depo-Medrol, Marcaine. I will get standing x-rays to see just how bad the arthritis is with her weight on, because she just have appearance of a mild genu varum also that could contribute to the medial joint line arthritis. Hopefully, the cortisone and Marcaine will help for her pain and I will evaluate her in the morning. Mina Pang DO
--- NOTE | 2017-07-08 10:20 | PN ---
DATE: 07/08/2017 LOCATION: In room 275, bed 2. SUBJECTIVE: The patient had a left knee injection of Depo-Medrol and Marcaine yesterday. Today, she feels much better. Less tenderness and less swelling. I am going to write an order for ambulation with a walker and to strengthen her lower extremities uric acid level to come back. Mina Pang DO
--- NOTE | 2017-07-08 10:21 | CARD ---
APPROVED REPORT EKG Measurement Heart [id number] <Conclusion> Normal sinus rhythm Normal ECG
--- NOTE | 2017-07-08 11:41 | CP.PCM.PN ---
<Elias De Leon - Last Filed: 07/08/17 13:51> Subjective - Date & Time of Evaluation Date of Evaluation: 07/08/17 Time of Evaluation: 11:30 - Subjective Subjective: Neurology progress note for Dr. Rios's service - Katy De Leon PGY2 Patient seen and examined at bedside. No acute overnight events or new complaints reported. Denies chest pain, palpitations, SOB. Objective - Vital Signs/Intake and Output Vital Signs (last 24 hours): Temp Pulse Resp BP Pulse Ox 98 F 66 18 104/61 97 07/07/17 17:41 07/08/17 06:00 07/07/17 17:41 07/07/17 17:41 07/07/17 05:47 Intake and Output: 07/08/17 07/08/17 06:59 18:59 Intake Total 200 Output Total 0 Balance 200 - Medications Medications: Current Medications Aspirin (Aspirin Chewable) 81 mg PO DAILY [facility] Last Admin: 07/08/17 10:30 Dose: 81 mg Atorvastatin Calcium (Lipitor) 20 mg PO DIN GANESH - Labs Labs: 07/07/17 07:00 07/07/17 07:00 PT 11.7 SECONDS (9.4-12.5) 07/07/17 00:20 INR 1.07 (0.93-1.08) 07/07/17 00:20 APTT 32.4 Seconds (25.1-36.5) 07/07/17 00:20 - Constitutional Appears: Non-toxic, No Acute Distress - Head Exam Head Exam: ATRAUMATIC, NORMAL INSPECTION, NORMOCEPHALIC - Eye Exam Eye Exam: EOMI, PERRL - ENT Exam ENT Exam: Mucous Membranes Moist - Neck Exam Neck Exam: Normal Inspection. absent: Lymphadenopathy, Tenderness, Thyromegaly - Respiratory Exam Respiratory Exam: Clear to Ausculation Bilateral. absent: Rales, Rhonchi, Wheezes - Cardiovascular Exam Cardiovascular Exam: RRR, +S1, +S2. absent: Gallop, JVD, Rubs - GI/Abdominal Exam GI & Abdominal Exam: Soft. absent: Distended, Firm, Guarding, Rigid, Tenderness , Rebound - Neurological Exam Neurological Exam: Alert, Awake, CN II-XII Intact, Oriented x3 Additional comments: awake, alert, oriented x3 EOMI PERRL CN2-12 grossly intact motor function grossly intact bilaterally sensory intact throughout no drift coordination, [id number] intact gait deferred - Psychiatric Exam Psychiatric exam: Normal Affect, Normal Mood - Skin Skin Exam: Dry, Intact, Normal Color, Warm Assessment and Plan - Assessment and Plan (Free Text) Plan: 81yo female presents with numbness and tingling of the left hand and forearm -Left upper extremity numbness/tingling 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 Please reconsult neurology as deemed necessary. Thank you for this consult. Patient seen and case discussed/reviewed with attending, Dr. Rios <Taras Rios - Last Filed: 07/08/17 15:40> Objective - Vital Signs/Intake and Output Vital Signs (last 24 hours): Temp Pulse Resp BP Pulse Ox 97.4 F L 70 20 110/62 97 07/08/17 12:00 07/08/17 12:00 07/08/17 12:00 07/08/17 12:00 07/07/17 05:47 Intake and Output: 07/08/17 07/08/17 06:59 18:59 Intake Total 200 Output Total 0 Balance 200 - Medications Medications: Current Medications Aspirin (Aspirin Chewable) 81 mg PO DAILY [facility] Last Admin: 07/08/17 10:30 Dose: 81 mg Atorvastatin Calcium (Lipitor) 20 mg PO DIN GANESH - Labs Labs: 07/07/17 07:00 07/07/17 07:00 PT 11.7 SECONDS (9.4-12.5) 07/07/17 00:20 INR 1.07 (0.93-1.08) 07/07/17 00:20 APTT 32.4 Seconds (25.1-36.5) 07/07/17 00:20 Attending/Attestation - Attestation I have personally seen and examined this patient.: Yes I have fully participated in the care of the patient.: Yes I have reviewed all pertinent clinical information, including history, physical exam and plan: Yes
[2017-07-08 12:11] VITALS: BP 110/62; PULSE 70; RESP 20; TEMP 97.4
--- NOTE | 2017-07-09 04:41 | DS ---
HISTORY OF PRESENT ILLNESS: This is an 81-year-old female who was admitted to [facility] through the emergency room for acute stroke protocol. The patient had numbness of the left arm. CAT scan of the head, MRI of the head, and CT angiogram showed no acute findings. The patient was seen by Neurology and cleared for discharge. Recommendations were to follow the patient as an outpatient on Lipitor and Ecotrin 81 mg daily with plans for doing an EMG for neuropathy following possibility of the left arm. 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 Clinical findings were discussed at length with the family. The patient also had evaluation by Orthopedics for pain over the left knee. Now, there is no evidence of uric acid. X-ray showed evidence of arthritis. The patient was recommended to walk with support using a walker. I advised outpatient followup. Zenaida Ricks MD
== END 2017-07-08 19:48 | disposition home or self-care (01) ==
LOC: ED 23:18 → INTOOBSV 07-07 02:39 → ERH 07-07 02:39 → 2RSO 07-07 03:52
PROVIDERS: ADMIT Internal Medicine; ATTEND Internal Medicine
DX: R53.1 Weakness (principal); R20.2 Paresthesia of skin; R20.0 Anesthesia of skin; M17.12 Unilateral primary osteoarthritis, left knee; M46.92 Unspecified inflammatory spondylopathy, cervical region; M21.169 Varus deformity, not elsewhere classified, unspecified knee; Z80.0 Family history of malignant neoplasm of digestive organs; Z88.0 Allergy status to penicillin
CPT/HCPCS: 20610; 36415; 70450; 70496; 70498; 70551; 71010; 73565; 80053; 80061; 82948; 83036; 84484; 84550; 85025; 85027; 85610; 85730; 86850; 86900; 93005; 97116; 97162; 99285; G0378; G8978; G8979; Q9967

== ENCOUNTER 2017-12-19 16:06 | Emergency (ER) | payer MEDICARE ==
[2017-12-19 16:26] VITALS: BMI 29.2
--- NOTE | 2017-12-19 18:02 | ED PDOC ---
Arrival/HPI - General Chief Complaint: Lower Extremity Problem/Injury Time Seen by Provider: 12/19/17 17:12 Historian: Patient, Family - History of Present Illness Narrative History of Present Illness (Text): 12/19/17 17:58 82-year-old female presents today sent in by her primary care physician for evaluation of discoloration to the right second toe. Patient states she's noticed some pain for the past 3 or 4 days to the right second toe. She doesn't remember any trauma or injury. She denies numbness or tingling in the extremity. Patient was sent in by the primary care physician due to the primary care physician's concern for possible circulation issue. Time/Duration: Other (3-4 days) Past Medical History - Provider Review Nursing Documentation Reviewed: Yes - Travel History Have you recently traveled outside [place] w/in the past 3 mons?: No - Infectious Disease Hx of Infectious Diseases: None - Tetanus Immunization Tetanus Immunization: Unknown - Cardiac Hx Cardiac Disorders: Yes Hx Hypotension: Yes - Pulmonary Hx Respiratory Disorders: Yes Hx Pneumonia: Yes Other/Comment: flu- 2015 - Neurological Hx Neurological Disorder: Yes Hx Vertigo: Yes - HEENT Hx HEENT Disorder: No - Renal Hx Renal Disorder: No - Endocrine/Metabolic Hx Endocrine Disorders: No - Hematological/Oncological Hx Blood Disorders: No - Integumentary Hx Dermatological Disorder: No - Musculoskeletal/Rheumatological Hx Musculoskeletal Disorders: No - Gastrointestinal Hx Gastrointestinal Disorders: No - Genitourinary/Gynecological Hx Genitourinary Disorders: No - Psychiatric Hx Psychophysiologic Disorder: No Hx Substance Use: No - Past Surgical History Past Surgical History: No Previous - Anesthesia Hx Anesthesia: No - Suicidal Assessment Feels Threatened In Home Enviroment: No Family/Social History - Physician Review Nursing Documentation Reviewed: Yes Family/Social History: Unknown Family HX Smoking Status: Never Smoked Hx Alcohol Use: No Hx Substance Use: No Hx Substance Use Treatment: No Allergies/Home Meds Allergies/Adverse Reactions: Allergies Penicillins Allergy (Verified 12/19/17 16:26) RASH Home Medications: Home Meds Medication Instructions Recorded Confirmed Multivit-Minerals/Folic Acid 1 tab PO DAILY 07/01/17 12/19/17 [Adult Multi Gummies] Review of Systems - Review of Systems Constitutional: absent: Fatigue, Fevers Respiratory: absent: SOB, Cough Cardiovascular: absent: Chest Pain, Palpitations Gastrointestinal: absent: Abdominal Pain, Nausea, Vomiting Genitourinary Female: absent: Dysuria, Frequency Musculoskeletal: Arthralgias Skin: absent: Laceration, Cellulitis Neurological: absent: Headache, Dizziness Psychiatric: absent: Anxiety, Depression Physical Exam Vital Signs Reviewed: Yes Vital Signs Temp Pulse Resp BP Pulse Ox 12/19/17 17:30 98.3 F 72 20 105/60 95 Temperature: Afebrile Blood Pressure: Normal Pulse: Regular Respiratory Rate: Normal Appearance: Positive for: Well-Appearing, Non-Toxic, Comfortable Pain Distress: None Mental Status: Positive for: Alert and Oriented X 3 - Systems Exam Head: Present: Atraumatic Mouth: Present: Moist Mucous Membranes Respiratory/Chest: Present: Clear to Auscultation Cardiovascular: Present: Regular Rate and Rhythm Upper Extremity: Present: Normal Inspection Lower Extremity: Present: NORMAL PULSES, Normal ROM, Tenderness (right 2nd toe; there is a ecchymosis noted within the nail. no discoloration noted to distal tip of toe; cap refill <2. sensation and distal pulses intact; strong dorsalis pedis pulse. ), Neurovascularly Intact, Capillary Refill < 2 s, Other (no lacerations, no abrasions, no abscess. ). No: CALF TENDERNESS, Swelling, Erythema, Deformity Neurological: Present: GCS=15, Speech Normal, Motor Func Grossly Intact, Normal Sensory Function Skin: Present: Warm, Dry, Normal Color Psychiatric: Present: Alert, Oriented x 3 Medical Decision Making ED Course and Treatment: 12/19/17 18:02 82yr old female sent in by dr. ricks for evaluation of discoloration to right 2nd toe under nail. cbc wnl cmp wnl pt wnl ptt wnl i discussed case with dr. ricks; he wants CHEY of right leg. arterial duplex right leg; CHEY right leg; 1.2 CHEY left leg; 1.17 xray right foot: no fracture 12/19/17 20:00 pt non toxic well appearing; no distress. all results discussed with family. dr. khan saw patient and spoke with dr. ricks. pt will f/u with dr. enciso and dr. ricks. Patient verbalizes understanding of discharge instructions and need for immediate followup. all aspects of this case were discussed the attending of record. impression; toe pain, contusion toe Follow up with primary care physician within the next 2 days Follow-up with a sample clerk within the next 2 days Return if symptoms worsen or persist or if new concerning symptoms develop - Lab Interpretations Lab Results: 12/19/17 18:12 12/19/17 18:12 Lab Results 12/19/17 18:12: PT 10.7, INR 0.94, APTT 32.8 12/19/17 18:12: WBC 6.5, RBC 4.39, Hgb 13.1, Hct 38.6, MCV 87.9, MCH 29.8, MCHC 33.9, RDW 14.1, Plt Count 250, MPV 10.3, Gran % 57.6, Lymph % (Auto) 30.9, Iron % (Auto) 6.6 H, Eos % (Auto) 4.0, Baso % (Auto) 0.9, Gran # 3.76, Lymph # (Auto ) 2.0, Iron # (Auto) 0.4, Eos # (Auto) 0.3, Baso # (Auto) 0.06 12/19/17 18:12: Sodium 142, Potassium 4.5, Chloride 107, Carbon Dioxide 27, Anion Gap 12, BUN 21, Creatinine 0.6 L, Est GFR ( Amer) > 60, Est GFR ( Non-Af Amer) > 60, Random Glucose 96, Calcium 10.9 H, Total Bilirubin 0.1 L, AST 20, ALT 24, Alkaline Phosphatase 76, Total Protein 6.6, Albumin 4.0, Globulin 2.6, Albumin/Globulin Ratio 1.5 - RAD Interpretation Radiology Orders: 12/19/17 17:13 LOWER EXT ART NON-INV COMPL [US] Stat 12/19/17 18:39 FOOT RIGHT 2ND DIGIT (TOE) [RAD] Stat Disposition/Present on Arrival - Present on Arrival Any Indicators Present on Arrival: No History of DVT/PE: No History of Uncontrolled Diabetes: No Urinary Catheter: No History of Decub. Ulcer: No History Surgical Site Infection Following: None - Disposition Have Diagnosis and Disposition been Completed?: Yes Diagnosis: Toe pain, Subungual hematoma Disposition: HOME/ ROUTINE Disposition Time: 19:57 Patient Plan: Discharge Condition: GOOD Discharge Instructions (ExitCare): Toe Injury (DC) Additional Instructions: Follow up with the primary care physician follow up with the sample clerk return if symptoms worsen,persist or if new symptoms develop; Referrals: Zenaida Ricks MD [Primary Care Provider] - Follow up with primary Yamini Enciso DPM [Staff Provider] - Follow up with primary Forms: Actions (Maltese)
[2017-12-19 18:22] LABS: BASO # 0.06 K/mm3 (0.0-2.0); BASO % 0.9 % (0.0-3.0); EOS # 0.3 (0.0-0.7); GRAN # 3.76 (1.4-6.5); GRAN % 57.6 % (50.0-68.0); HEMOGLOBIN 13.1 g/dL (12.0-16.0); LYMPH % 30.9 % (22.0-35.0); MEAN CELL VOLUME 87.9 fl (80.0-105.0); MEAN CORPUSCULAR HEMOGLOBIN 29.8 pg (25.0-35.0); MEAN CORPUSCULAR HGB CONC 33.9 g/dl (31.0-37.0); MEAN PLATELET VOLUME 10.3 fl (7.0-11.0); MONO # 0.4 (0.1-0.6); MONO % 6.6 % (1.0-6.0); RBC 4.39 10^6/uL (3.5-6.1); RED CELL DISTRIBUTION WIDTH 14.1 % (11.5-14.5); WHITE BLOOD COUNT 6.5 10^3/ul (4.5-11.0)
[2017-12-19 18:32] LABS: INR 0.94 (0.93-1.08); PARTIAL THROMBOPLASTIN TIME 32.8 Seconds (25.1-36.5); PROTHROMBIN TIME 10.7 SECONDS (9.4-12.5)
[2017-12-19 18:36] LABS: ALB/GLOB RATIO 1.5 (1.1-1.8); ALT/SGPT 24 U/L (7-56); AST/SGOT 20 U/L (14-36); BLOOD UREA NITROGEN 21 mg/dL (7-21); CALCIUM 10.9 mg/dL (8.4-10.5); GFR AFRICAN-AMERICAN > 60; GFR NON-AFRICAN AMERICAN > 60
[2017-12-19 20:04] VITALS: BP 110/70; PULSE 79; RESP 18; TEMP 98
[2017-12-19 20:05] VITALS: O2SAT 99
--- NOTE | 2017-12-20 08:15 | RAD ---
PROCEDURE: Right foot HISTORY: 2nd toe pain COMPARISON: None TECHNIQUE: Standard protocol for this study/examination. FINDINGS: No acute fractures. Moderate hallux valgus deformity. Degenerative changes interphalangeal joints. IMPRESSION: No acute findings related to/accounting for the clinical presentation.
--- NOTE | 2017-12-20 11:51 | US ---
PROCEDURE: Lower extremity CHEY exam HISTORY: Peripheral vascular disease with ischemic right foot pain PHYSICIAN(S): Gama Samson MD. FINDINGS: The resting CHEY's are normal: right, 1.20and left, 1.17. The brachial systolic pressures are symmetric. The high thigh pressures and waveforms are relatively normal. The calf PVR waveforms augment normally. No significant gradients are noted across the thighs. The ankle and metatarsal waveforms are relatively normal and symmetric. No significant pressure gradients are noted across the lower legs. IMPRESSION: 1. Normal CHEY and PVR examination at rest.
== END 2017-12-19 20:04 | disposition home or self-care (01) ==
LOC: ED 16:06
DX: M79.676 Pain in unspecified toe(s) (principal); S90.121A Contusion of right lesser toe(s) without damage to nail, initial encounter; X58.XXXA Exposure to other specified factors, initial encounter

== ENCOUNTER 2018-06-30 14:35 | Observation (INO) | payer MEDICARE ==
[2018-06-30 14:45] VITALS: BMI 26.2
--- NOTE | 2018-06-30 15:47 | ED PDOC ---
Arrival/HPI - General Chief Complaint: Dizziness/Lightheaded Time Seen by Provider: 06/30/18 15:28 Historian: Patient, Family (daughter) - History of Present Illness Narrative History of Present Illness (Text): 06/30/18 15:46 82 year old female whose past medical history includes hypotension, and vertigo, who presents to the Emergency department accompanied by her daughter complaining of dizziness and left ear pain for the past two days. History was given by daughter, who states 2 nights ago patient felt lightheaded and unbalanced when ambulating. Per daughter, patient's walking have been slower requiring her to stabilize the patient. Of note patient doesn't use a walker or cane to walk. Patient is experiencing left ear otalgia, which prompted her to see her PMD, who suggested that she could follow-up as an outpatient or in the Emergency department. Daughter reports that she and her mother were in [place] during the summer, where the patient experienced 2 episodes of vertigo and was prescribed medication, which worsened her symptoms, and prompted patient discontinuing the medication. Patient also experienced shortness of breath 2 days ago, which the daughter attributes to anxiety that the patient had from her lightheadedness/dizziness. She experienced nausea and vomiting over the summer, but daughter denies patient complained of any recent fevers, chills, cough, chest pain, dyspnea on exertion, abdominal pain, nausea, vomiting, diarrhea, back pain, neck pain, headache, or any other complaint. PMD: Dr. Ricks Time/Duration: < week Symptom Course: Unchanged Activities at Onset: Light Context: Home Past Medical History - Provider Review Nursing Documentation Reviewed: Yes - Infectious Disease Hx of Infectious Diseases: None - Tetanus Immunization Tetanus Immunization: Unknown - Reproductive Menopause: Yes - Cardiac Hx Cardiac Disorders: Yes Hx Hypotension: Yes - Pulmonary Hx Respiratory Disorders: Yes Hx Pneumonia: Yes Other/Comment: flu- 2015 - Neurological Hx Neurological Disorder: Yes Hx Vertigo: Yes - HEENT Hx HEENT Disorder: No - Renal Hx Renal Disorder: No - Endocrine/Metabolic Hx Endocrine Disorders: No - Hematological/Oncological Hx Blood Disorders: No - Integumentary Hx Dermatological Disorder: No - Musculoskeletal/Rheumatological Hx Musculoskeletal Disorders: No - Gastrointestinal Hx Gastrointestinal Disorders: No - Genitourinary/Gynecological Hx Genitourinary Disorders: No - Psychiatric Hx Psychophysiologic Disorder: No Hx Substance Use: No - Past Surgical History Past Surgical History: No Previous - Anesthesia Hx Anesthesia: No - Suicidal Assessment Feels Threatened In Home Enviroment: No Family/Social History - Physician Review Nursing Documentation Reviewed: Yes Family/Social History: Unknown Family HX Smoking Status: Never Smoked Hx Alcohol Use: No Hx Substance Use: No Hx Substance Use Treatment: No Allergies/Home Meds Allergies/Adverse Reactions: Allergies Penicillins Allergy (Verified 12/19/17 16:26) RASH Home Medications: Home Meds Medication Instructions Recorded Confirmed Multivit-Minerals/Folic Acid 1 tab PO DAILY 07/01/17 12/19/17 [Adult Multi Gummies] Review of Systems - Physician Review All systems were reviewed & negative as marked: Yes - Review of Systems Constitutional: Normal. absent: Fevers Eyes: Normal ENT: Normal Respiratory: SOB Cardiovascular: Normal. absent: Chest Pain Gastrointestinal: Normal. absent: Abdominal Pain, Diarrhea, Nausea, Vomiting Genitourinary Female: Normal Musculoskeletal: Normal. absent: Back Pain, Neck Pain Skin: Normal Neurological: Dizziness. absent: Headache Endocrine: Normal Hemo/Lymphatic: Normal Psychiatric: Normal Physical Exam Vital Signs Reviewed: Yes Vital Signs Temp Pulse Resp BP Pulse Ox 06/30/18 14:37 98.0 F 63 18 107/55 L 98 Temperature: Afebrile Blood Pressure: Normal Pulse: Regular Respiratory Rate: Normal Appearance: Positive for: Well-Appearing, Non-Toxic, Comfortable Pain Distress: None Mental Status: Positive for: Alert and Oriented X 3 (alert) - Systems Exam Head: Present: Atraumatic, Normocephalic Pupils: Present: PERRL Extroacular Muscles: Present: EOMI Conjunctiva: Present: Normal Mouth: Present: Moist Mucous Membranes Neck: Present: Normal Range of Motion, Paraspinal Tenderness (tenderness to palpation of the left trapezial muscle) Respiratory/Chest: Present: Clear to Auscultation, Good Air Exchange. No: Respiratory Distress, Accessory Muscle Use Cardiovascular: Present: Regular Rate and Rhythm, Normal S1, S2. No: Murmurs Abdomen: No: Tenderness, Distention, Peritoneal Signs Back: Present: Normal Inspection Upper Extremity: Present: Normal Inspection. No: Cyanosis, Edema Lower Extremity: Present: Normal Inspection. No: Edema Neurological: Present: GCS=15, CN II-XII Intact, Speech Normal, Motor Func Grossly Intact (normal upper and lower extremities ), Other (no dysarthria, no facial dyssymmetry. bilateral upper and lower extremity motor strength normal.) Skin: Present: Warm, Dry, Normal Color. No: Rashes Psychiatric: Present: Alert, Oriented x 3, Normal Insight, Normal Concentration Medical Decision Making ED Course and Treatment: 06/30/18 15:46 Impression: 82 year old female who presents to the Emergency department with complaints of dizziness. Differential Diagnosis included but are not limited to: TIA Vertigo Meiniere's disease Plan: -- Head CT -- EKG -- Labs -- Chest X-ray -- Antivert -- UA -- Reassess and disposition Prior Visits: Notes and results from previous visits were reviewed. Progress Notes: 06/30/18 18:09 Labs reviewed and unremarkable. CTH results pending. Spoke to Dr. Ricks(PCP) who after review of labs states patient may follow up with him outpatient once CT results are negative. - Lab Interpretations I have reviewed the lab results: Yes - RAD Interpretation Narrative RAD Interpretations (Text): 06/30/18 19:[address] w/o contrast: Dictator : Nayeli Bridges MD FINDINGS: VERTEBRAE:No fracture. Normal alignment. No destructive bony lesion. DISCS/SPINAL CANAL/NEURAL FORAMINA:Moderate spondylosis noted. Multilevel posterior osteophyte disc bulge complex noted more prominent at C5-C6 and C6-C7 associated with mild spinal and neural foraminal narrowing. Endplate degenerative changes associated with multilevel narrowing of the intervertebral disc spaces more prominent at C5-C6-C6-C7 and C7-T1. PARASPINAL SOFT TISSUES:The thyroid gland is mildly enlarged contains multiple nodules. OTHER FINDINGS:None. IMPRESSION: Moderate spondylosis. Straightening of the cervical spine which could be due to muscle spasm. Multilevel posterior osteophyte disc bulge complex more prominent at C5-C6 and C6-C7. CT HEAD WITHOUT CONTRAST: Dictator : Freida Median MD FINDINGS: HEMORRHAGE: No intracranial hemorrhage. BRAIN:Diffuse atrophy with prominence of the ventricles and sulci noted. No mass effect or edema. Dense intracranial atherosclerotic calcifications. Scattered periventricular and subcortical white matter hypodensities, which are nonspecific, but often seen with chronic microvascular ischemic disease. Please note that MRI with diffusion imaging is more sensitive in the detection of acute ischemic event. VENTRICLES:No hydrocephalus. CALVARIUM:Unremarkable. PARANASAL SINUSES:Unremarkable as visualized. No significant inflammatory scott es. MASTOID AIR CELLS:Unremarkable as visualized. No inflammatory changes. OTHER FINDINGS:None. IMPRESSION: Generalized atrophy. Nonspecific white matter changes. Radiology Orders: 06/30/18 15:30 HEAD W/O CONTRAST [CT] Stat CHEST PORTABLE [RAD] Stat Breeder Hen Service Technician: Radiologist - EKG Interpretation EKG Interpretation (Text): 06/30/18 14:42 EKG shows NSR at [address] elevations, no T wave inversions, no QT prolongations, with no prior for comparison. Interpreted by me. Interpreted by ED Physician: Yes Type: 12 lead EKG - Medication Orders Current Medication Orders: Discontinued Medications Meclizine HCl (Antivert) 12.5 mg PO STAT STA Stop: 06/30/18 15:32 - Scribe Statement The provider has reviewed the documentation as recorded by the Scribe Xiomara Woo training with Isaac Moseley Provider Scribe Attestation: All medical record entries made by the Scribe were at my direction and personally dictated by me. I have reviewed the chart and agree that the record accurately reflects my personal performance of the history, physical exam, medical decision making, and the department course for this patient. I have also personally directed, reviewed, and agree with the discharge instructions and disposition. Disposition/Present on Arrival - Present on Arrival History of DVT/PE: No History of Uncontrolled Diabetes: No Urinary Catheter: No History of Decub. Ulcer: No History Surgical Site Infection Following: None - Disposition
[2018-06-30 16:31] LABS: BASO # 0.03 K/mm3 (0.0-2.0); BASO % 0.4 % (0.0-3.0); EOS # 0.2 (0.0-0.7); EOS % 3.4 % (1.5-5.0); GRAN # 4.12 (1.4-6.5); GRAN % 60.5 % (50.0-68.0); HEMOGLOBIN 13.3 g/dL (12.0-16.0); LYMPH # 1.9 (1.2-3.4); LYMPH % 27.5 % (22.0-35.0); MEAN CELL VOLUME 89.3 fl (80.0-105.0); MEAN CORPUSCULAR HEMOGLOBIN 29.8 pg (25.0-35.0); MEAN CORPUSCULAR HGB CONC 33.3 g/dl (31.0-37.0); MEAN PLATELET VOLUME 10.3 fl (7.0-11.0); MONO # 0.6 (0.1-0.6); MONO % 8.2 % (1.0-6.0); RBC 4.47 10^6/uL (3.5-6.1); WHITE BLOOD COUNT 6.8 10^3/uL (4.5-11.0)
[2018-06-30 16:39] LABS: ALB/GLOB RATIO 1.3 (1.1-1.8); ALBUMIN 3.8 g/dL (3.0-4.8); ALT/SGPT 26 U/L (7-56); AST/SGOT 26 U/L (14-36); BLOOD UREA NITROGEN 22 mg/dL (7-21); CALCIUM 10.6 mg/dL (8.4-10.5); GFR NON-AFRICAN AMERICAN > 60
[2018-06-30 16:51] LABS: TROPONIN I < 0.01 ng/mL
--- NOTE | 2018-06-30 17:03 | CARD ---
APPROVED REPORT Date of service: 06/30/2018 EKG Measurement Heart [id number] <Conclusion> Normal sinus rhythm Normal ECG
[2018-06-30 17:36] LABS: PH,URINE 6.5 (4.7-8.0); URINE BILIRUBIN NEGATIVE (NEGATIVE); URINE BLOOD NEGATIVE (NEGATIVE); URINE COLOR LIGHT YELLOW (YELLOW); URINE GLUCOSE (UA) NEGATIVE (NEGATIVE); URINE LEUKOCYTE ESTERASE SMALL Leu/uL (NEGATIVE); URINE PROTEIN NEGATIVE mg/dL (<30 mg/dL); URINE UROBILINOGEN 0.2 E.U./dL (<1 E.U./dL)
[2018-06-30 17:37] LABS: URINE APPEARANCE CLEAR (CLEAR)
[2018-06-30] MEDS: Sodium Chloride 0.9% 1,000 ML IV SCH (17:38)
[2018-06-30 17:44] LABS: URINE BACTERIA TRACE (NEG); URINE EPITHELIAL CELLS 0 - 2 /hpf (0-5); URINE RBC NEGATIVE /hpf (0-2)
--- NOTE | 2018-06-30 18:27 | CT ---
Date of service: 06/30/2018 PROCEDURE: CT HEAD WITHOUT CONTRAST. HISTORY: dizziness COMPARISON: Noncontrast head CT performed 07/06/17 TECHNIQUE: Axial computed tomography images were obtained through the head/brain without intravenous contrast. Radiation dose: Total exam DLP = 836.06 mGy-cm. This CT exam was performed using one or more of the following dose reduction techniques: Automated exposure control, adjustment of the mA and/or kV according to patient size, and/or use of iterative reconstruction technique. FINDINGS: HEMORRHAGE: No intracranial hemorrhage. BRAIN: Diffuse atrophy with prominence of the ventricles and sulci noted. No mass effect or edema. Dense intracranial atherosclerotic calcifications. Scattered periventricular and subcortical white matter hypodensities, which are nonspecific, but often seen with chronic microvascular ischemic disease. Please note that MRI with diffusion imaging is more sensitive in the detection of acute ischemic event. VENTRICLES: No hydrocephalus. CALVARIUM: Unremarkable. PARANASAL SINUSES: Unremarkable as visualized. No significant inflammatory changes. MASTOID AIR CELLS: Unremarkable as visualized. No inflammatory changes. OTHER FINDINGS: None. IMPRESSION: Generalized atrophy. Nonspecific white matter changes.
--- NOTE | 2018-06-30 19:07 | CT ---
Date of service: 06/30/2018 PROCEDURE: CT Cervical Spine without contrast HISTORY: neck pain COMPARISON: None available. TECHNIQUE: Axial computed tomography images were obtained of the cervical spine without the use of intravenous contrast. Coronal and sagittal reformatted images were created and reviewed. Radiation dose: Total exam DLP = 682.48 mGy-cm. This CT exam was performed using one or more of the following dose reduction techniques: Automated exposure control, adjustment of the mA and/or kV according to patient size, and/or use of iterative reconstruction technique. FINDINGS: VERTEBRAE: No fracture. Normal alignment. No destructive bony lesion. DISCS/SPINAL CANAL/NEURAL FORAMINA: Moderate spondylosis noted. Multilevel posterior osteophyte disc bulge complex noted more prominent at C5-C6 and C6-C7 associated with mild spinal and neural foraminal narrowing. Endplate degenerative changes associated with multilevel narrowing of the intervertebral disc spaces more prominent at C5-C6-C6-C7 and C7-T1. PARASPINAL SOFT TISSUES: The thyroid gland is mildly enlarged contains multiple nodules. OTHER FINDINGS: None. IMPRESSION: Moderate spondylosis. Straightening of the cervical spine which could be due to muscle spasm. Multilevel posterior osteophyte disc bulge complex more prominent at C5-C6 and C6-C7.
[2018-07-01] MEDS: Sodium Chloride 0.9% 1,000 ML IV SCH (02:37)
[2018-07-01 06:21] VITALS: RESP 18
--- NOTE | 2018-07-01 08:29 | RAD ---
Date of service: 06/30/2018 HISTORY: sob COMPARISON: 07/07/2017 FINDINGS: LUNGS: No active pulmonary disease. PLEURA: No significant pleural effusion identified, no pneumothorax apparent. CARDIOVASCULAR: No aortic atherosclerotic calcification present. Normal cardiac size. No pulmonary vascular congestion. OSSEOUS STRUCTURES: No significant abnormalities. VISUALIZED UPPER ABDOMEN: Normal. OTHER FINDINGS: None. IMPRESSION: No active disease.
--- NOTE | 2018-07-01 10:06 | HP ---
DATE OF EXAM: 07/01/2018 HISTORY OF PRESENT ILLNESS: An 82-year-old female presented to the office today with her daughter with a history of recently returning from a visit to [facility], and during the time that she was there from December through present, she was seen twice by physicians there for "dizziness and vertigo." As per the daughter, she was treated with antibiotics and some wax removed from one of her ears, but into the best of the daughter's knowledge did not have any neurological diagnostic studies done. PAST MEDICAL HISTORY: The patient has a past medical history of cervical arthritis, hyperparathyroidism, thyroid nodules which the family has declined evaluation in the past, history of arthritis. SOCIAL HISTORY: She is a nonsmoker, nondrinker, non drug user. ALLERGIES: THERE IS AN ALLERGY TO PENICILLIN. HOME MEDICATIONS: Consist of Ecotrin 81 mg daily and a multivitamin daily. REVIEW OF SYSTEMS: Ten systems are reviewed. Pertinent findings during the exam. PHYSICAL EXAMINATION: VITAL SIGNS: Her temperature is 98, her pulse is 63, her blood pressure is 107/55, her respiratory rate is 18, she is in room air at 98% saturation. GENERAL: She is alert and oriented x3. NECK: Supple. LUNGS: Clear. HEART: S1, S2 rhythm. ABDOMEN: Soft with positive bowel sounds. EXTREMITIES: Show no evidence of edema. NEUROLOGICAL: She is alert and oriented x3. LABORATORY DATA: Showed a WBC of 6.8, RBC of 4.47, hemoglobin 13.3, hematocrit 39.9, platelet count is 266. Chemistry shows a sodium of 141, potassium 4.5, chloride 107, CO2 is 28, the BUN is 22 and the creatinine is 0.6. Calcium is 10.6. LFTs are normal. Troponin is less than 0.01. Urinalysis is clear with small leukocyte esterase and trace urine bacteria. IMPRESSION: 1. Elderly female with several months of complaints of dizziness and vertigo. 2. History of cervical degenerative arthritis. 3. History of arthritis. 4. History of hyperparathyroidism. 5. History of thyroid nodules. PLAN: The patient will be admitted for further evaluation with Neurology and Cardiology consult. We will request a thyroid profile. Further treatment plan pending input from the consultants and results of diagnostic studies. At this particular point in time, a CAT scan of her head was read as generalized atrophy with nonspecific white matter changes. Chest x-ray is reported as showing no active disease. Electrocardiogram shows a sinus rhythm. Zenaida Ricks MD
[2018-07-01 10:27] LABS: T3 UPTAKE 35.7 % (23.0-41.0); T4 6.7 ug/dL (5.5-11.0)
[2018-07-01] MEDS ORDERED: Dexamethasone 2 MG in Sodium Chloride 0.9% 50 ML IV ONE (17:16)
[2018-07-01] MEDS ORDERED: Dexamethasone 4 mg/1 ml ONE (18:27)
--- NOTE | 2018-07-01 18:27 | US ---
Date of service: 07/01/2018 PROCEDURE: Duplex ultrasound of the carotid and vertebral arteries. HISTORY: Dizzyness, R/o STACY COMPARISON: None available. TECHNIQUE: Grayscale and duplex Doppler evaluation of the cervical carotid and vertebral arteries were performed. The common carotid, carotid bifurcations and cervical ICA and proximal ECA were evaluated. The vertebral arteries were evaluated for gross patency and direction. FINDINGS: There is mild diffuse intimal thickening. RIGHT CAROTID ARTERIES: Common Carotid Artery: Normal. Maximal flow velocity of 87 cm/s. Carotid Bifurcation: Normal. Internal Carotid Artery:Normal. Maximal flow velocity of 63 cm/s. External Carotid Artery (proximal branches): Normal. Maximal flow velocity of 69 cm/s. ICA/CCA Ratio: 1.1 LEFT CAROTID ARTERIES: Common Carotid Artery: Normal. Maximal flow velocity of 49 cm/s. Carotid Bifurcation: Normal. Internal Carotid Artery:Normal. Maximal flow velocity of 76 cm/s. External Carotid Artery (proximal branches): Normal. Maximal flow velocity of 74 cm/s. ICA/CCA Ratio: 1.8 VERTEBRAL ARTERIES: Right Vertebral Artery: Patent. Antegrade flow. Left Vertebral Artery: Patent. Antegrade flow. OTHER FINDINGS: No atherosclerotic calcification present IMPRESSION: Normal Duplex Doppler of the cervical carotid and vertebral arteries.
--- NOTE | 2018-07-01 18:50 | CON ---
DATE OF CONSULTATION: 07/01/2018 CHIEF COMPLAINT: Dizziness. HISTORY OF PRESENT ILLNESS: This is an 82-year-old woman with past medical history of cervical arthritis seen on the CAT scan of the cervical spine on this visit, hyperparathyroidism, thyroid nodules, who presented to the hospital after her visit from [facility] in 12/2017, has been having intermittent episodes of dizziness and intermittent spinning sensation of the room. As per the patient as well as daughter, she has had wax removed from her both ears. CAT scan of the head showed no acute intracranial abnormalities. She has some mild spinning sensation of the room with sudden movements. PAST MEDICAL HISTORY: As above. FAMILY HISTORY: Noncontributory. SOCIAL HISTORY: No illicit drug use, smoking or EtOH abuse. ALLERGIES: ALLERGIC TO PENICILLIN. REVIEW OF SYSTEMS: A 14-point review of systems is negative except as per the HPI. PHYSICAL EXAMINATION: VITAL SIGNS: Temperature 97.7, pulse rate 66, blood pressure 118/66, respiratory rate 18. Orthostatic vital signs are negative. GENERAL: The patient is sitting up in bed, in no acute distress. HEENT: Atraumatic, normocephalic. PERRLA. Extraocular muscles intact. NECK: Supple. No JVD. No adenopathy noted. LUNGS: Clear to auscultation. No adventitious sounds. HEART: S1 and S2. Normal rate and rhythm. No murmur, rubs, or gallops. ABDOMEN: Soft, nontender and nondistended. Bowel sounds are present. EXTREMITIES: No clubbing. No cyanosis. Peripheral pulses 2+ felt bilaterally. NEUROLOGIC: The patient is alert and oriented to person, place, month, and year. Speech is fluent without any errors. Cranial nerves II through XII intact. Motor Exam: Moves all extremities equally. No pronator drift seen. Toes are downgoing bilaterally. Sensory Exam: Decreased light touch and pinprick up to the calves bilaterally. Decreased vibration of the toes. DTRs are 2+ throughout and 1 at both knees and ankles. Coordination: [id number] intact. No dysmetria noted. Gait is deferred. Musculoskeletal: Negative. LABORATORY DATA: Sodium is 141, potassium 4.5, chloride 107, carbon dioxide 28, BUN of 22, creatinine 0.6, random glucose of 85. Thyroid function test is normal. IMPRESSION: Her dizziness is more of a positional vertigo with some underlying possible vestibular neuritis at this time superimposed on underlying cervical arthritis. RECOMMENDATIONS: 1. Meclizine 12.5 mg p.o. b.i.d. 2. Salt-restriction diet. 3. We will give 1 dose dexamethasone 2 mg IV push for underlying vertigo. 4. Outpatient vestibular therapy. She is clinically stable from my standpoint. Carotid Doppler results are currently pending. Taras Rios MD
--- NOTE | 2018-07-01 19:58 | CARD ---
APPROVED REPORT Date of service: 07/01/2018 EXAM: Two-dimensional and M-mode echocardiogram with Doppler and color Doppler. INDICATION VERTIGO, DIZZINESS 2D DIMENSIONS Left Atrium (2D)3.0 (1.6-4.0cm)IVSd1.0 (0.7-1.1cm) LVDd3.8 (3.9-5.9cm)PWd1.0 (0.7-1.1cm) LVDs2.7 (2.5-4.0cm)FS (%) 28.3 % LVEF (%)55.4 (>50%) M-Mode DIMENSIONS Aortic Root3.30 (2.2-3.7cm)Aortic Cusp Exc.1.80 (1.5-2.0cm) Aortic Valve AoV Peak Yltnmatf918.0cm/Lonny Peak GR.10mmHg Mitral Valve MV E Haxusyju70.9cm/sMV A Wfrnwntt38.5cm/sE/A ratio1.0 TDI Lateral E' Peak V9.36cm/sMedial E' Peak V6.34cm/sE/Lateral E'8.8 E/Medial E'12.9 Tricuspid Valve TR Peak Dijloedl707hi/sRAP REKTFQIX05moGhCA Peak Gr.22mmHg [id number] LEFT VENTRICLE The left ventricle is normal size. There is normal left ventricular wall thickness. The left ventricular function is normal.EF-55-60% There is normal LV segmental wall motion. Transmitral Doppler flow pattern is Grade II-pseudonormal filling dynamics. No left ventricle thrombus noted on this study. There is no ventricular septal defect visualized. There is no left ventricular aneurysm. There is no mass noted in the left ventricle. RIGHT VENTRICLE The right ventricle is normal size. There is normal right ventricular wall thickness. The right ventricular systolic function is normal. ATRIA The left atrium size is normal. The right atrium size is normal. The interatrial septum is intact with no evidence for an atrial septal defect. AORTIC VALVE The aortic valve is thickened but opens well. There is trace aortic regurgitation. There is no aortic valvular stenosis. There is no aortic valvular vegetation. MITRAL VALVE The mitral valve is thickened but opens well. Mitral regurgitation is mild. There is no mitral valve stenosis. There is no evidence of mitral valve prolapse. TRICUSPID VALVE The tricuspid valve leaflets are thickened , but open well. There is mild tricuspid regurgitation.RVSP-32 mmof Hg There is no tricuspid valve stenosis. There is no tricuspid valve prolapse or vegetation. PULMONIC VALVE The pulmonic valve is mildly thickened. There is mild to moderate pulmonic valvular regurgitation. There is no pulmonic valvular stenosis. GREAT VESSELS The aortic root is normal in size. The ascending aorta is normal in size. The pulmonary artery is normal. The IVC is normal in size and collapses >50% with inspiration. PERICARDIAL EFFUSION There is no pleural effusion. There is no pericardial effusion. <Conclusion> Normal chamber Size. Ef-55-60% There is trace aortic regurgitation. Mitral regurgitation is mild. There is mild tricuspid regurgitation.RVSP-32 mmof Hg There is mild to moderate pulmonic valvular regurgitation. The IVC is normal in size and collapses >50% with inspiration. There is no pericardial effusion.
--- NOTE | 2018-07-01 21:02 | CON ---
DATE OF CONSULTATION: 07/01/2018 CONSULT SERVICE: Cardiology. REASON FOR CONSULTATION: Cardiac evaluation, bradycardia, admitted with vertigo. BRIEF CLINICAL HISTORY: This is an 82-year-old female with no significant past medical history except having vertigo while the patient was in [place] in 12/2017. Suddenly it comes in bouts and then disappears, was associated with dizziness with things in [place] and then it gets better. Recently, the patient came back to [facility] and is still having this episodic dizziness and vertigo. Denies any chest pain. Denies shortness of breath. Denies any palpitation. Denies any dyspnea on exertion. Recently, the patient went to the ENT doctor, got some antibiotic and earwax removed. PAST MEDICAL HISTORY: Significant for arthritis, hyperparathyroidism, thyroid nodule as per family, the daughter. PAST SURGICAL HISTORY: Nothing significant. SOCIAL HISTORY: Denies smoking. Denies any history of alcohol abuse. CURRENT MEDICATIONS: The patient takes multivitamin one daily. ALLERGIES: NO KNOWN DRUG ALLERGIES. PHYSICAL EXAMINATION: VITAL SIGNS: Temperature afebrile, heart rate 60, blood pressure 112/62. HEENT: PERRLA. Extraocular muscles intact. NECK: Supple. No carotid bruit or thyromegaly. CHEST: Clear to auscultation. HEART: S1 and S2 regular. ABDOMEN: Soft. EXTREMITIES: Clubbing and cyanosis negative. LABORATORY DATA: EKG shows normal sinus, no acute ST-T changes noted. Telemetry shows bradycardia, but the patient was sleeping in the morning. Blood Workup: WBC 6.8, hemoglobin 13.3, hematocrit 39.9, platelet count 266. Chemistries show sodium 141, potassium 4.5, chloride 107, carbon dioxide 28, anion gap of 11, BUN 22 and creatinine 0.6. Troponin 0.01. IMPRESSION: An 82-year-old female with no significant past medical history, except vertigo that started in 12/2017. So far, two episodes of vertigo happened. RECOMMENDATIONS: We will do orthostatic hypotension. Do lipid profile, TSH, hemoglobin A1c. Do the carotid duplex as well as echo to rule out any structural heart disease. The patient had one episode of bradycardia with a heart rate of 42, but should not account this a significant bradycardia. We will follow with you. We will put Holter monitor to monitor any significant bradycardia. Discussed in length with daughter, Lacy Aguayo. Thank you, Dr. Ricks, for providing us the opportunity in taking care of your patient. Chadd Gómez MD cc: Zenaida Ricks MD
[2018-07-01] MEDS ORDERED: Magnesium Hydroxide Susp 30 ml UD PO ONE (21:27)
[2018-07-02 06:15] VITALS: O2SAT 98
--- NOTE | 2018-07-02 10:45 | PN ---
DATE: 07/02/2018 REASON FOR THE CONSULTATION AND FOLLOWUP: Cardiac evaluation, bradycardia, admitted with vertigo. SUBJECTIVE: The patient denies any chest pain, shortness of breath, or any palpitation. PHYSICAL EXAMINATION: GENERAL: Not in any apparent distress, lying flat on the bed. VITAL SIGNS: Temperature afebrile, heart rate 64, blood pressure 110/60. HEENT: PERRLA. Extraocular muscles intact. NECK: Supple. No carotid bruit. No thyromegaly. CHEST: Clear to auscultation. HEART: S1 and S2 regular. ABDOMEN: Soft. EXTREMITIES: Clubbing and cyanosis negative. LABORATORY DATA: Blood workup as follows: WBC 6.8, hemoglobin 13.3, hematocrit 39.9, platelet count 266. Chemistry shows sodium 141, potassium 4.5, chloride 107, carbon dioxide 28, anion gap of 11, BUN 22, creatinine 0.6, TSH 1.62. Total triglyceride 64, total cholesterol 233, LDL 162, HDL 49. IMPRESSION: An 82-year-old female with no significant past medical history, admitted with 2 episodes of vertigo, one in December, one at this time, found on telemetry to have bradycardia. Now, bradycardia is completely resolved. The patient is getting Holter monitor. Blood workup significant shows hyperlipidemia with elevated LDL. The patient had also echocardiography done yesterday that revealed ejection fraction 55%-60%. Trace aortic regurgitation. Mild mitral regurgitation. Mild tricuspid regurgitation. Right ventricular systolic pressure 32. Essentially normal echo. RECOMMENDATIONS: Followup Holter. Because of multiple risk factors, suggest stress test as outpatient in a week. Arrangement has been made for a stress test as outpatient. If the patient remains hemodynamically stable, okay to be discharged. Also, it is important to mention the patient yesterday orthostatic hypotension was done, that was negative for orthostatic hypotension. Lying down blood pressure 118/69, sitting 118/66, and standing 116/61. No evidence of orthostatic hypotension. As mentioned, we will schedule stress test as outpatient in a week. Thank you, Dr. Ricks, for providing us the opportunity in taking care of the patient, Xiomara Shrestha. Chadd Gómez MD
[2018-07-02 13:03] VITALS: BP 111/76; TEMP 97.2
[2018-07-02 16:39] VITALS: PULSE 58
--- NOTE | 2018-07-03 18:27 | CARD ---
APPROVED REPORT Date of service: 07/03/2018 Reason for Test: BRADYCARDIA, DIZZYNESS, R/O SSS Hookup date: 2018-07-01 Scan date: 2018-07-03 Recording time: 23 HR 59 MIN Heart Rate Data Total Beats: 30105 Min HR: 49 BPM at 8:11AM Avg HR: 64 BPM Max HR: 94 BPM at 4:08AM Supraventricular Ectopy Total VE Beats: 17 (0.0%) Atrial Runs: 2 Beats: 11 Longest: 7 Fastest: 124 BPM Longest R-R: 1.3 sec at 12:20 PM Single PAC's: 6
== END 2018-07-02 17:49 | disposition home or self-care (01) ==
LOC: ED 14:35 → ERH 18:55 → 2RSO 21:58 → INTOOBSV 07-01 16:30 → OBSVTOIN 07-01 16:30
PROVIDERS: ADMIT Internal Medicine; ATTEND Internal Medicine
DX: R00.1 Bradycardia, unspecified (principal); H93.3X9 Disorders of unspecified acoustic nerve; M46.92 Unspecified inflammatory spondylopathy, cervical region; E78.5 Hyperlipidemia, unspecified; I08.1 Rheumatic disorders of both mitral and tricuspid valves; M47.9 Spondylosis, unspecified; Z87.01 Personal history of pneumonia (recurrent); M19.90 Unspecified osteoarthritis, unspecified site; E21.3 Hyperparathyroidism, unspecified; E04.2 Nontoxic multinodular goiter; Z88.0 Allergy status to penicillin
CPT/HCPCS: 36415; 70450; 71045; 72125; 80053; 80061; 81001; 83036; 83735; 84100; 84436; 84443; 84479; 84484; 85025; 87086; 93005; 93225; 93226; 93306; 93880; 96374; 96375; 97116; 97161; 97530; 99285; G0378; G8978; G8979; J1100; J1885; J7030

== ENCOUNTER 2019-01-05 13:01 | Emergency (ER) | payer MEDICARE ==
[2019-01-05 13:01] VITALS: BMI 30.2
--- NOTE | 2019-01-05 13:27 | ED PDOC ---
Arrival/HPI - General Chief Complaint: Dizziness/Lightheaded Time Seen by Provider: 01/05/19 13:03 Historian: Patient - History of Present Illness Narrative History of Present Illness (Text): 01/05/19 13:03 Dung Sanchez is a 83 year old female, with a past medical history of vertigo, who presents to the emergency department complaining of dizziness since 3 days. Patient notes associated headache and nausea. Patient denies nausea currently in the ED. Per daughter, patient was given leftover meclizine yesterday every 6 hours with no improvement. Patient denies taking meclizine this morning. Patient was advised to visit ED by Dr. Ricks. Patient denies fevers, chills, shortness of breath, chest pain, abdominal pain, vomiting, diarrhea, dysuria, hematuria, or any other complaint. Time/Duration: < week (3 days) Symptom Onset: Sudden Activities at Onset: Light Context: Home Past Medical History - Provider Review Nursing Documentation Reviewed: Yes Primary Care Provider: Zenaida Ricks - Infectious Disease Hx of Infectious Diseases: None - Tetanus Immunization Tetanus Immunization: Unknown - Cardiac Hx Cardiac Disorders: Yes Hx Hypertension: Yes - Pulmonary Hx Respiratory Disorders: Yes - Neurological Hx Neurological Disorder: Yes Hx Vertigo: Yes - HEENT Hx HEENT Disorder: No - Renal Hx Renal Disorder: No - Endocrine/Metabolic Hx Endocrine Disorders: No - Hematological/Oncological Hx Blood Disorders: No - Integumentary Hx Dermatological Disorder: No - Musculoskeletal/Rheumatological Hx Musculoskeletal Disorders: No - Gastrointestinal Hx Gastrointestinal Disorders: No - Genitourinary/Gynecological Hx Genitourinary Disorders: No - Psychiatric Hx Psychophysiologic Disorder: No Hx Substance Use: No - Past Surgical History Past Surgical History: No Previous - Anesthesia Hx Anesthesia: No - Suicidal Assessment Feels Threatened In Home Enviroment: No Family/Social History - Physician Review Nursing Documentation Reviewed: Yes Family/Social History: Unknown Family HX Smoking Status: Never Smoked Hx Alcohol Use: Yes (1 glass of wine) Frequency of alcohol use: Daily Hx Substance Use: No Hx Substance Use Treatment: No Allergies/Home Meds Allergies/Adverse Reactions: Allergies Penicillins Allergy (Verified 01/05/19 13:17) RASH Home Medications: Home Meds Medication Instructions Recorded Confirmed Multivit-Minerals/Folic Acid 1 tab PO DAILY 07/01/17 01/05/19 [Adult Multi Gummies] Aspirin [Adult Low Dose Aspirin EC] 81 tab PO DAILY 06/30/18 01/05/19 Review of Systems - Physician Review All systems were reviewed & negative as marked: Yes - Review of Systems Constitutional: absent: Fevers, Other (chills) Respiratory: absent: SOB Cardiovascular: absent: Chest Pain Gastrointestinal: Nausea. absent: Abdominal Pain, Diarrhea, Vomiting Genitourinary Female: absent: Dysuria, Hematuria Neurological: Headache, Dizziness Physical Exam Vital Signs Reviewed: Yes Vital Signs Temp Pulse Resp BP Pulse Ox 01/05/19 13:13 97.4 F L 64 17 120/77 96 Temperature: Afebrile Blood Pressure: Normal Pulse: Regular Respiratory Rate: Normal Appearance: Positive for: Well-Appearing, Non-Toxic, Comfortable Pain Distress: None Mental Status: Positive for: Alert and Oriented X 3 - Systems Exam Head: Present: Atraumatic, Normocephalic Pupils: Present: PERRL Extroacular Muscles: Present: EOMI Conjunctiva: Present: Normal Mouth: Present: Moist Mucous Membranes Neck: Present: Normal Range of Motion Respiratory/Chest: Present: Clear to Auscultation, Good Air Exchange. No: Respiratory Distress, Accessory Muscle Use, Wheezes, Rales, Rhonchi Cardiovascular: Present: Regular Rate and Rhythm, Normal S1, S2. No: Murmurs, Rub, Gallop Abdomen: Present: Normal Bowel Sounds. No: Tenderness, Distention, Peritoneal Signs, Rebound, Guarding Back: Present: Normal Inspection Upper Extremity: Present: Normal Inspection. No: Cyanosis, Edema Lower Extremity: Present: Normal Inspection. No: Edema Neurological: Present: GCS=15, CN II-XII Intact, Speech Normal Skin: Present: Warm, Dry, Normal Color. No: Rashes Psychiatric: Present: Alert, Oriented x 3, Normal Insight, Normal Concentration Medical Decision Making ED Course and Treatment: 01/05/19 13:03 Impression: Patient is an 83 year old female with a past medical history of hypotension and vertigo, who presents to the emergency department complaining of dizziness since 3 days. Plan: -- CT Head w/o Contrast -- EKG -- Labs -- Chest X-Ray -- Meclizine 25 mg PO -- Reassess and disposition Prior Visits: Notes and results from previous visits were reviewed. Progress Notes: 01/05/19 15:[address] Ricks. Pt is feeling better in the ED and admits she has not taken her meclizine since being discharged 6 months ago. Pt prescribed meclizine and instructed to follow up with Dr. Ricks this week. - RAD Interpretation Narrative RAD Interpretations (Text): 01/05/19 14:48 Chest X-Ray shows: IMPRESSION: No active pulmonary disease. Assembly Line Inspector: Radiologist - EKG Interpretation EKG Interpretation (Text): 01/05/19 15:53 Reviewed EKG, shows: Sinus Bradycardia at 56 BPM. Interpreted by ED Physician: Yes Type: 12 lead EKG - Scribe Statement The provider has reviewed the documentation as recorded by the Scribe Lopez Light All medical record entries made by the Scribe were at my direction and personally dictated by me. I have reviewed the chart and agree that the record accurately reflects my personal performance of the history, physical exam, medical decision making, and the department course for this patient. I have also personally directed, reviewed, and agree with the discharge instructions and disposition. Disposition/Present on Arrival - Present on Arrival Any Indicators Present on Arrival: No History of DVT/PE: No History of Uncontrolled Diabetes: No Urinary Catheter: No History of Decub. Ulcer: No History Surgical Site Infection Following: None - Disposition Have Diagnosis and Disposition been Completed?: Yes Diagnosis: Dizziness Disposition: HOME/ ROUTINE Disposition Time: 14:45 Condition: IMPROVED Discharge Instructions (ExitCare): Vertigo (a Type of Dizziness) (DC) Additional Instructions: DUNG SANCHEZ, thank you for letting us take care of you today. Your provider was Lopez Omalley DO and you were treated for DIZZINESS. The emergency medical care you received today was directed at your acute symptoms. If you were prescribed any medication, please fill it and take as directed. It may take several days for your symptoms to resolve. Return to the Emergency Department if your symptoms worsen, do not improve, or if you have any other problems. Please contact your doctor or call one of the physicians/clinics you have been referred to that are listed on the Patient Visit Information form that is included in your discharge packet. Bring any paperwork you were given at discharge with you along with any medications you are taking to your follow up visit. Our treatment cannot replace ongoing medical care by a primary care provider outside of the emergency department. Thank you for allowing the [facility] team to be part of your care today. TAKE THE MECLIZINE PRESCRIBED. Follow up with Dr. Ricks this week for re-evaluation and further management. Prescriptions: Meclizine [Meclizine*] 12.5 mg PO BID #60 tab Referrals: Zenaida Ricks MD [Primary Care Provider] - Follow up with primary Forms: [email or web address] (Khmer)
[2019-01-05] MEDS ORDERED: Sodium Chloride 0.9% 1,000 ML IV SCH (13:45)
[2019-01-05 13:49] LABS: BASO # 0.03 K/mm3 (0.0-2.0); BASO % 0.4 % (0.0-3.0); EOS # 0.1 (0.0-0.7); EOS % 1.8 % (1.5-5.0); LYMPH # 1.9 (1.2-3.4); LYMPH % 27.5 % (22.0-35.0); MEAN CELL VOLUME 89.8 fl (80.0-105.0); MEAN CORPUSCULAR HEMOGLOBIN 28.8 pg (25.0-35.0); MEAN CORPUSCULAR HGB CONC 32.1 g/dl (31.0-37.0); MEAN PLATELET VOLUME 10.6 fl (7.0-11.0); MONO # 0.6 (0.1-0.6); MONO % 8.3 % (1.0-6.0); RBC 4.51 10^6/uL (3.5-6.1); RED CELL DISTRIBUTION WIDTH 14.3 % (11.5-14.5); WHITE BLOOD COUNT 6.7 10^3/uL (4.5-11.0)
[2019-01-05 13:59] LABS: INR 1.01; PROTHROMBIN TIME 11.4 SECONDS (9.4-12.5)
[2019-01-05 14:00] LABS: ALB/GLOB RATIO 1.4 (1.1-1.8); ALBUMIN 3.8 g/dL (3.0-4.8); ALT/SGPT 18 U/L (7-56); AST/SGOT 19 U/L (14-36); BLOOD UREA NITROGEN 24 mg/dL (7-21); CALCIUM 10.8 mg/dL (8.4-10.5); GFR NON-AFRICAN AMERICAN > 60
[2019-01-05 14:11] LABS: TROPONIN I < 0.01 ng/mL
--- NOTE | 2019-01-05 14:37 | CT ---
Date of service: 01/05/2019 PROCEDURE: CT HEAD WITHOUT CONTRAST. HISTORY: dizziness r/o ICH COMPARISON: 06/30/2018 TECHNIQUE: Axial computed tomography images were obtained through the head/brain without intravenous contrast. Radiation dose: Total exam DLP = 846.51 mGy-cm. This CT exam was performed using one or more of the following dose reduction techniques: Automated exposure control, adjustment of the mA and/or kV according to patient size, and/or use of iterative reconstruction technique. FINDINGS: HEMORRHAGE: No intracranial hemorrhage. BRAIN: Abarca-white matter differentiation is preserved. There is no mass, mass effect or abnormal extra-axial fluid collection. There is no territorial infarction. The midline sagittal structures are normal.There are coarse atherosclerotic calcifications in the cavernous carotid arteries. VENTRICLES: There is mild age-related global parenchymal volume loss and proportionate enlargement of the ventricles and cortical sulci. CALVARIUM: There is no calvarial fracture or extracranial soft tissue swelling. PARANASAL SINUSES: Predominantly clear. MASTOID AIR CELLS: Predominantly clear. OTHER FINDINGS: None. IMPRESSION: No acute intracranial abnormality. No significant interval change. If there is a persistent focal neurologic deficit and an ongoing clinical concern for acute infarction, an MRI of the brain without intravenous contrast would be a more sensitive modality for evaluation of hyperacute/acute ischemic infarction.
--- NOTE | 2019-01-05 14:51 | RAD ---
Date of service: 01/05/2019 HISTORY: r/o infiltrate COMPARISON: 06/30/2018. FINDINGS: LUNGS: The lungs are well inflated and clear. PLEURA: No pleural effusions or pneumothorax. CARDIOVASCULAR: The heart is normal in size. No aortic atherosclerotic calcifications present. OSSEOUS STRUCTURES: Within normal limits for the patient's age. VISUALIZED UPPER ABDOMEN: Normal. OTHER FINDINGS: None. IMPRESSION: No active pulmonary disease.
[2019-01-05 15:03] VITALS: BP 123/74; TEMP 97.9; O2SAT 99
[2019-01-05 15:17] VITALS: PULSE 71; RESP 18
--- NOTE | 2019-01-05 19:30 | CARD ---
APPROVED REPORT Date of service: 01/05/2019 EKG Measurement Heart [id number] MI [id number] <Conclusion> Sinus bradycardia with sinus arrhythmia Otherwise normal ECG
== END 2019-01-05 15:17 | disposition home or self-care (01) ==
LOC: ED 13:01
DX: R42 Dizziness and giddiness (principal); I10 Essential (primary) hypertension
CPT/HCPCS: 70450; 71045; 80053; 82550; 83615; 83735; 84484; 85025; 85610; 85730; 93005; 96374; 99285; J2765; J7030